=== PATIENT | male | born 1950 | race African-American/Black ===

== ENCOUNTER 2020-06-03 11:31 | Inpatient (IN) | payer OTHER, MEDICARE ==
[~2020-06-03] VITALS: Ht 170.2 cm; Wt 73.5 kg
[~2020-06-03 11:31] MED LIST: CRESTOR40 MG ORAL; INTELENCE100 MG ORAL; ISENTRESS25 MG ORAL; LOSARTAN POTASS50 MG ORAL; LUNESTA3 MG ORAL; MELOXICAM15 MG PO; NEURONTIN600 MG ORAL; PROTONIX40 MG ORAL
[2020-06-03 11:33] VITALS: BP 119/70
--- NOTE | 2020-06-03 11:40 | NUR ---
ED Nurse Note: patient brought into ED referred by Dr. Machado due to rectal bleeding x 1 week. patient reports it is bright red blood. patient denies any abdominal pain or nausea or vomiting. patient was scheduled to get colonoscopy, but had to come to ED because of frequent, consistant bleeding. patient is alert awake x4 ambulatory steady gait, however reports feeling weak. patient provided with hospital gown. patient brething unlabored and even, speaking in full sentences.
--- NOTE | 2020-06-03 11:56 | Emergency Room Report ---
History of Present Illness General Chief Complaint: Gastrointestinal Bleed Source: Patient Present Illness HPI Disclaimer: Please note that this report is being documented using [employer] technology. This can lead to erroneous entry secondary to incorrect interpretation by the dictating instrument. HPI: 69-year-old male history of arthritis, diverticulosis, hemorrhoids presented for lower GI bleed. Patient has had bright red blood per rectum for the past week. Seen by his primary care doctor and had a hemoglobin done on Saturday showing a hemoglobin of 10. His symptoms have continued and he is complaining of some generalized weakness and dizziness so referred to the ER for further evaluation and probable colonoscopy. Patient is followed by GI and last colonoscopy was 5 years ago showing polyps. Patient denies any abdominal pain at this time. 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 COVID-19 Screening: Negative COVID-19 COVID-19 Testing Source: EVENTS DIRECTOR Patient History Reviewed Nursing Documentation: PMH: Agreed; PSxH: Agreed Nursing Documentation-PMH Past Medical History: No History, Except For Hx Cardiac Problems: Yes - HIV+, diverticulitis Hx Hypertension: Yes Hx Asthma: Yes Hx Cancer: Yes Hx Gastrointestinal Problems: Yes - workman's esophagus Hx Neurological Problems: Yes Hx Peripheral Neuropathy: Yes Review of Systems All Other Systems: negative except mentioned in HPI Physical Exam Vital Signs Date Time Temp Pulse Resp B/P (MAP) Pulse Ox O2 Delivery O2 Flow Rate FiO2 06/03/20 11:33 97.9 88 17 119/70 (86) 98 Room Air Sp02 EP Interpretation: reviewed, normal General Appearance: well appearing, no apparent distress Head: normocephalic, atraumatic Eyes: bilateral eye PERRL, bilateral eye EOMI ENT: hearing grossly normal, moist mucus membranes Neck: full range of motion, supple Respiratory: lungs clear, normal breath sounds, no rhonchi, no respiratory distress, no retraction, no wheezing Cardiovascular #1: normal peripheral pulses, regular rate, rhythm, no murmur Gastrointestinal: non tender, soft, non-distended, no guarding Neurologic: alert, oriented x3, no focal defects Skin: normal color, warm/dry Procedures Critical Care Time Critical Care Time Critical care is made on the patient due to presentation for GI bleeding requiring my acute intervention for blood transfusion. Critical care is 33 minutes and excludes procedures Medical Decision Making Diagnostic Impression: Primary Impression: Gastrointestinal hemorrhage ER Course MDM: Patient presents from home with rectal bleeding. Differential diagnosis included but not limited to diverticular bleeding, hemorrhoidal bleeding, upper GI bleed to name a few. Clinical course-IV fluids started basic laboratory studies were sent. Patient had coronavirus testing earlier today which was negative. Hemoglobin returned 7.6. I spoke with GI who plans to take patient for colonoscopy in the morning after a bowel prep. Due to low hemoglobin with ongoing bleeding will order blood transfusion. Patient updated at bedside. Labs - Laboratory Tests Test 06/03/20 12:00 White Blood Count 7.1 K/UL (4.8-10.8) Red Blood Count 2.90 M/UL (4.70-6.10) L Hemoglobin 7.6 G/DL (14.2-18.0) L Hematocrit 24.0 % (42.0-52.0) L Mean Corpuscular Volume 83 FL (80-99) Mean Corpuscular Hemoglobin 26.0 PG (27.0-31.0) L Mean Corpuscular Hemoglobin Concent 31.5 G/DL (32.0-36.0) L Red Cell Distribution Width 14.7 % (11.6-14.8) Platelet Count 187 K/UL (150-450) Mean Platelet Volume 6.5 FL (6.5-10.1) Neutrophils (%) (Auto) % (45.0-75.0) Lymphocytes (%) (Auto) % (20.0-45.0) Monocytes (%) (Auto) % (1.0-10.0) Eosinophils (%) (Auto) % (0.0-3.0) Basophils (%) (Auto) % (0.0-2.0) Differential Total Cells Counted 100 Neutrophils % (Manual) 81 % (45-75) H Lymphocytes % (Manual) 14 % (20-45) L Monocytes % (Manual) 4 % (1-10) Eosinophils % (Manual) 0 % (0-3) Basophils % (Manual) 1 % (0-2) Band Neutrophils 0 % (0-8) Platelet Estimate Adequate Platelet Morphology Normal Hypochromasia 1+ Anisocytosis 1+ Prothrombin Time 10.3 SEC (9.30-11.50) Prothrombin Time INR 0.9 (0.9-1.1) Activated Partial Thromboplast Time 23 SEC (23-33) Sodium Level 138 MMOL/L (136-145) Potassium Level 4.1 MMOL/L (3.5-5.1) Chloride Level 105 MMOL/L (98-107) Carbon Dioxide Level 25 MMOL/L (21-32) Anion Gap 8 mmol/L (5-15) Blood Urea Nitrogen 29 mg/dL (7-18) H Creatinine 1.1 MG/DL (0.55-1.30) Estimated Glomerular Filtration Rate > 60 mL/min (>60) Glucose Level 110 MG/DL (74-106) H Calcium Level 8.5 MG/DL (8.5-10.1) Total Bilirubin 0.3 MG/DL (0.2-1.0) Aspartate Amino Transferase (AST) 30 U/L (15-37) Alanine Aminotransferase (ALT) 31 U/L (12-78) Alkaline Phosphatase 53 U/L (46-116) Total Protein 7.1 G/DL (6.4-8.2) Albumin 3.8 G/DL (3.4-5.0) Globulin 3.3 g/dL Albumin/Globulin Ratio 1.2 (1.0-2.7) Last Vital Signs Date Time Temp Pulse Resp B/P (MAP) Pulse Ox O2 Delivery O2 Flow Rate FiO2 06/03/20 11:33 97.9 88 17 119/70 (86) 98 Room Air Status: unchanged Disposition: ADMITTED INPATIENT Condition: Serious Pipe Kebede M.D. Jun 03, 2020 11:56
[2020-06-03 12:38] LABS: HEMOGLOBIN 7.6 G/DL (14.2-18.0); MEAN CORPUSCULAR VOLUME 83 FL (80-99); PLATELET COUNT 187 K/UL (150-450); RED CELL DISTRIBUTION WIDTH 14.7 % (11.6-14.8); WHITE BLOOD COUNT 7.1 K/UL (4.8-10.8)
[2020-06-03 12:43] LABS: ANION GAP 8 mmol/L (5-15); BLOOD UREA NITROGEN 29 mg/dL (7-18); CALCIUM 8.5 MG/DL (8.5-10.1); CARBON DIOXIDE 25 MMOL/L (21-32); CHLORIDE 105 MMOL/L (98-107); CREATININE 1.1 MG/DL (0.55-1.30); INR 0.9 (0.9-1.1); POTASSIUM 4.1 MMOL/L (3.5-5.1); SODIUM 138 MMOL/L (136-145)
[2020-06-03 12:47] LABS: ALANINE AMINOTRANSFERASE 31 U/L (12-78); ALBUMIN 3.8 G/DL (3.4-5.0); ALBUMIN/GLOBULIN RATIO 1.2 (1.0-2.7); ALKALINE PHOSPHATASE 53 U/L (46-116); ASPARTATE AMINO TRANSFERASE 30 U/L (15-37); BILIRUBIN,TOTAL 0.3 MG/DL (0.2-1.0)
--- NOTE | 2020-06-03 13:14 | NUR ---
ED Nurse Note: at bedside.
--- NOTE | 2020-06-03 13:22 | General Progress Note ---
Assessment/Plan Assessment/Plan: GIB h/o diverticulosis transfuse plan EGD and colonoscopy Subjective ROS Limited/Unobtainable: Yes Allergies: Coded Allergies: No Known Allergies (Unverified , 06/03/20) Objective Last 24 Hour Vital Signs Date Time Temp Pulse Resp B/P (MAP) Pulse Ox O2 Delivery O2 Flow Rate FiO2 06/03/20 12:14 88 17 Room Air 06/03/20 11:33 97.9 88 17 119/70 98 Room Air 06/03/20 11:33 97.9 88 17 119/70 (86) 98 Room Air Laboratory Tests 06/03/20 12:00: White Blood Count 7.1, Red Blood Count 2.90L, Hemoglobin 7.6L, Hematocrit 24.0L , Mean Corpuscular Volume 83, Mean Corpuscular Hemoglobin 26.0L, Mean Corpuscular Hemoglobin Concent 31.5L, Red Cell Distribution Width 14.7, Platelet Count 187, Mean Platelet Volume 6.5, Neutrophils (%) (Auto) , Lymphocytes (%) (Auto) , Monocytes (%) (Auto) , Eosinophils (%) (Auto) , Basophils (%) (Auto) , Differential Total Cells Counted 100, Neutrophils % ( Manual) 81H, Lymphocytes % (Manual) 14L, Monocytes % (Manual) 4, Eosinophils % ( Manual) 0, Basophils % (Manual) 1, Band Neutrophils 0, Platelet Estimate Adequate, Platelet Morphology Normal, Hypochromasia 1+, Anisocytosis 1+, Prothrombin Time 10.3, Prothromb Time International Ratio 0.9, Activated Partial Thromboplast Time 23, Sodium Level 138, Potassium Level 4.1, Chloride Level 105, Carbon Dioxide Level 25, Anion Gap 8, Blood Urea Nitrogen 29H, Creatinine 1.1, Estimat Glomerular Filtration Rate > 60, Glucose Level 110H, Calcium Level 8.5, Total Bilirubin 0.3, Aspartate Amino Transf (AST/SGOT) 30, Alanine Aminotransferase (ALT/SGPT) 31, Alkaline Phosphatase 53, Total Protein 7.1, Albumin 3.8, Globulin 3.3, Albumin/Globulin Ratio 1.2 Height (Feet): 5 Height (Inches): 10.00 Weight (Pounds): 160 EENT: normal ENT inspection Neck: supple Cardiovascular: normal rate Respiratory/Chest: lungs clear Abdomen: normal bowel sounds, non tender, soft Extremities: non-tender Ming Machado MD Jun 03, 2020 13:22
--- NOTE | 2020-06-03 13:33 | NUR ---
ED Nurse Note: clear liquid diet provided to the patient.
--- NOTE | 2020-06-03 14:07 | NUR ---
ED Nurse Note: report given to Shahida HUSTON, endorsed all plan of care to Shahida HUSTON. patient is alert awake x4 vitals stable condition.
--- NOTE | 2020-06-03 14:16 | NUR ---
ED Nurse Note: spoke with Shahida HUSTON that unable to transfuse ordered blood in ED at this time because blood bank needs to get blood [facility]. Shahida HUSTON acknowledged.
--- NOTE | 2020-06-03 14:25 | NUR ---
ED Nurse Note: patient transferred to 3E with all of his belongings, endorsed to Sendy HUSTON.
--- NOTE | 2020-06-03 14:38 | NUR ---
NURSE NOTES: Patient arrived on unit. AOx4, Stable. Breathing is even and unlabored. Patient oriented to room, call light, and unit. Patient instructed to use call light for assistance, verbalized understanding. Patient's skin is c/d/i. Patient is able to ambulate independently. All safety measures provided. All needs met at this time. WIll continue to monitor.
[2020-06-03] MEDS ORDERED: FLONASE ALLERG9.9 ML NS (15:31)
[2020-06-03] MEDS ORDERED: ASPIRIN81 M3 PO (15:31)
[2020-06-03 16:00] VITALS: BP 127/68
[2020-06-03] MEDS ORDERED: Nulytely 4L ORAL SCH (16:00)
[2020-06-03] MEDS: D5 1/2NS w/KCl 20mEq 1,000 ML IV SCH (16:20)
--- NOTE | 2020-06-03 16:40 | NUR ---
INSTALLMENT ACCOUNT CHECKER NOTE SW met w/ pt to assess transition social worker concern. Pt presents as A&O4x. Pt resides w/ his mother at [address] [place] [address]. PT is single, never and has no children. Pt is ambulatory w/o DMEs and independent w/ ADLs and IADLs. Emergency contact is Destiny Snyder (mother) [phone]. PT does not have any transition social worker concern/needs at this time. Pt provided another mailing address: [address] [place] [address].
[2020-06-03] MEDS ORDERED: [UNRECOGNIZED DRUG - OTHER] ORAL SCH (17:30)
[2020-06-03] MEDS ORDERED: LUNESTA 3 MG ORAL PRN (17:30)
--- NOTE | 2020-06-03 18:27 | NUR ---
NURSE NOTES: Blood transfusion started. VSS, BP: 128/65, HR: 94, T: 98.6. Patient is stable. Blood verified by 2 RN. RN will closely monitor patient for any signs of reaction.
--- NOTE | 2020-06-03 18:43 | NUR ---
NURSE NOTES: 1 Unit PRBC transfusing as ordered. No s/s transfusion reaction noted. VSS. BP: 119/64, P: 96, T: 98.5. Breathing is even and unlabored. No chills, no chest pain. Patient is tolerating transfusion well. Patient is almost finished with first bottle of Suprep bowel prep. Patient had 3 bowel movements.
--- NOTE | 2020-06-03 18:59 | NUR ---
NURSE NOTES: Patient had large bloody bowel movement. Dr. Snow made aware. New orders noted and entered. Patient is stable.
--- NOTE | 2020-06-03 19:19 | NUR ---
HAND-OFF: Report given to Rayna HUSTON. Patient is stable. Plan of care endorsed.
[2020-06-03 20:00] VITALS: BP 115/69
--- NOTE | 2020-06-03 20:26 | NUR ---
nurse's notes: received patient awake, alert and oriented, admits to some abdominal discomfort but no substantial pain; first unit of PRBCs completed; no s/s of adverse reaction; cbc to be drawn post transfusion; lab made aware; plan of care discussed with patient who verbalized agreement and understanding.
[2020-06-03] MEDS: Albuterol Sulfate Syrup 2mg/5ml ORAL SCH ×2 (20:42→20:48)
[2020-06-03] MEDS ORDERED: ESZOPICLONE 3 MG ORAL PRN (20:45)
[2020-06-03] MEDS ORDERED: ISENTRESS 400 MG ORAL SCH (21:00)
[2020-06-03] MEDS ORDERED: ROSUVASTATIN 20 MG ORAL SCH (21:00)
[2020-06-03] MEDS ORDERED: INTELENCE 200 MG ORAL SCH (21:00)
[2020-06-03 21:03] LABS: HEMATOCRIT 24.5 % (42.0-52.0); HEMOGLOBIN 7.8 G/DL (14.2-18.0); MEAN CORPUSCULAR VOLUME 83 FL (80-99); PLATELET COUNT 169 K/UL (150-450); RED BLOOD COUNT 2.97 M/UL (4.70-6.10); RED CELL DISTRIBUTION WIDTH 15.3 % (11.6-14.8); WHITE BLOOD COUNT 6.6 K/UL (4.8-10.8)
[2020-06-03 21:07] LABS: BASOPHILS % (AUTO) 0.8 % (0.0-2.0); EOSINOPHILS % (AUTO) 0.1 % (0.0-3.0); MONOCYTES % (AUTO) 6.3 % (1.0-10.0); NEUTROPHILS % (AUTO) 76.8 % (45.0-75.0)
--- NOTE | 2020-06-03 23:00 | NUR ---
NURSE NOTES: Receive a call from [facility] for requesting to send face sheet for arrangement of transfer by Dr. Snow's order and faxed it. Pt is waiting for transfer to ICU meanwhile.
--- NOTE | 2020-06-03 23:06 | History and Physical ---
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 The patient was referred to us by his primary care physician, Dr. Maurisio Kiser. The patient was in his usual state of health until roughly the past week when he started to notice hematochezia described as bright red blood per rectum. The patient was being evaluated by his PCP as an outpatient and on Saturday prior to presentation to ED, hemoglobin was roughly 10. He was being planned for further outpatient evaluation. However, he continued to have more episodes of hematochezia now associated with generalized weakness and lightheadedness and fatigue. The patient denied any associated abdominal pain, nausea, vomiting with this. He also did not have any worsening of his baseline asthma which is well controlled on home inhalers. He does have chronic back, lower extremity pain from known arthritis and has been taking Meloxicam daily up until roughly Saturday as well. He has no other bleeding or bruising. He does not have any skin changes or rashes. He did have chills without objective measured fever during this time. There is no cough. He has a headache without any other associated neurologic symptoms. This prompted the patient to be referred to the ED for further evaluation. Per patient and confirmed by PCP Dr. Kiser, the patient has had multiple colonoscopies prior, last one done 5 years prior showing extensive diverticulosis, internal hemorrhoids, as well as polyps. In the ED, the patient was afebrile and hemodynamically stable. A CBC showed a hemoglobin drop to 7.4. Gastroenterology Dr. Machado was contacted who recommended bowel prep with plan for EGD and colonoscopy on 06/04/2020 AM. In light of active bleeding, the patient was ordered for 1 unit PRBC transfusion in the ED. INR and PTT were unremarkable as well as Platelet. No evidence of hemolysis based on bilirubin. He was then admitted for further management. Clinical update since admission: The patient at roughly around 7 pm shift change, was noted to have recurrent episode of large red bloody bowel movement. A repeat CBC was done post- transfusion which did not show an appropriate rise in hemoglobin. In light of active ongoing bleed, additional units were ordered and pending. The patient also described chills, which he reported preceded blood transfusion, and was ordered for cultures and broad spectrum antibiotics. He was able to complete half of his bowel prep, but was uncomfortable with proceeding with second given concern for worsening hypovolemia. 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 Allergies: Coded Allergies: No Known Allergies (Unverified , 06/03/20) COVID-19 Screening Contact w/high risk pt: No Recent Travel to affected area: No Experienced COVID-19 symptoms?: No Medication History Scheduled Aspirin (Aspirin), 81 MG PO DAILY, (Reported) Etravirine* (Intelence*), 100 MG ORAL EVERY 12 HOURS, (Reported) Fluticasone Propionate (Flonase Allergy Relief), 9.9 ML NS HS, (Reported) Fluticasone Propionate (Flovent Hfa), Unknown Dose INH BID, (Reported) Gabapentin* (Neurontin*), 600 MG ORAL DAILY, (Reported) Meloxicam* (Meloxicam*), 15 MG PO DAILY, (Reported) Montelukast Sodium* (Singulair*), 10 MG ORAL DAILY, (Reported) Pantoprazole* (Protonix*), 40 MG ORAL DAILY, (Reported) Raltegravir (Isentress), 400 MG ORAL EVERY 12 HOURS, (Reported) Rosuvastatin Calcium* (Crestor*), 40 MG ORAL DAILY, (Reported) Testosterone Cypionate (Depo-Testosterone), 1 MG IM NEEDED, (Reported) Scheduled PRN Eszopiclone (Lunesta), 3 MG ORAL BEDTIME PRN for Insomnia, (Reported) Eszopiclone (Lunesta), 3 MG ORAL BEDTIME PRN, (Reported) Miscellaneous Medications Irbesartan (Irbesartan), 150 MG PO, (Reported) Umeclidinium Brm/Vilanterol Tr (Anoro Ellipta 62.5-25 Mcg INH), (Reported) Discontinued Medications Losartan Potassium* (Losartan Potassium*), 50 MG ORAL DAILY, (Reported) Discontinued Reason: Prescription changed Raltegravir Potassium (Isentress), 50 MG ORAL TWICE A DAY, (Reported) Discontinued Reason: Prescription changed Patient History History Provided By: Patient, Medical Record, Caregiver Healthcare decision maker Resuscitation status FULL CODE Advanced Directive on File Past Medical/Surgical History Past Medical/Surgical History: (1) Gastrointestinal hemorrhage (2) HIV (human immunodeficiency virus infection) (3) Hypertension (4) CAD (coronary artery disease) (5) Diverticulosis (6) Internal hemorrhoid (7) Osteoarthritis (8) Hip joint replacement status (9) GERD (gastroesophageal reflux disease) (10) Asthma (11) Testosterone deficiency in male (12) Lives in single-family home Family History Family History: Patient reports no known family medical history. Social History Social History: (1) Lives in single-family home Review of Systems Constitutional: Reports: chills, malaise Eye: Denies: acuity changes ENT: Denies: ear discharge, throat pain, nasal discharge Respiratory: Denies: cough, orthopnea, shortness of breath Cardiovascular: Denies: chest pain, edema, syncope Gastrointestinal: Reports: other - hematochezia; Denies: abdominal pain, hematemesis Genitourinary: Denies: discharge, dysuria Musculoskeletal: Reports: back pain, joint pain Skin: Denies: rash Psychiatric: Reports: prior hx Neurological: Reports: headache, dizziness; Denies: focal weakness Endocrine: Denies: intolerance to temperature Hematologic/Lymphatic: Reports: anemia; Denies: easy bruising All Other Systems: negative except mentioned in HPI Physical Exam General Appearance: alert, lethargic, mild distress Lines, tubes and drains: peripheral HEENT: normocephalic, atraumatic, other - dry mucus membranes Neck: non-tender, normal alignment, supple, normal inspection Respiratory/Chest: lungs clear, normal breath sounds, no respiratory distress Cardiovascular/Chest: normal peripheral pulses, normal rate, regular rhythm Abdomen: non tender, soft, hypoactive bowel sounds Genitourinary/Rectal: other - witnessed hematochezia Extremities: normal range of motion, no edema Skin Exam: normal pigmentation, warm/dry Neurologic: no motor/sensory deficits, alert, oriented x 3 Last 24 Hour Vital Signs Date Time Temp Pulse Resp B/P (MAP) Pulse Ox O2 Delivery O2 Flow Rate FiO2 06/03/20 20:00 98.6 88 20 115/69 (84) 100 89 06/03/20 16:00 98.3 88 20 127/68 (87) 100 06/03/20 14:37 Room Air 7/24/20 14:25 97.9 17 119/70 98 Room Air 06/03/20 12:14 88 17 Room Air 06/03/20 11:33 97.9 88 17 119/70 98 Room Air 06/03/20 11:33 97.9 88 17 119/70 (86) 98 Room Air Laboratory Tests Test 06/03/20 12:00 06/03/20 20:35 White Blood Count 7.1 K/UL (4.8-10.8) 6.6 K/UL (4.8-10.8) Red Blood Count 2.90 M/UL (4.70-6.10) L 2.97 M/UL (4.70-6.10) L Hemoglobin 7.6 G/DL (14.2-18.0) L 7.8 G/DL (14.2-18.0) L Hematocrit 24.0 % (42.0-52.0) L 24.5 % (42.0-52.0) L Mean Corpuscular Volume 83 FL (80-99) 83 FL (80-99) Mean Corpuscular Hemoglobin 26.0 PG (27.0-31.0) L 26.2 PG (27.0-31.0) L Mean Corpuscular Hemoglobin Concent 31.5 G/DL (32.0-36.0) L 31.7 G/DL (32.0-36.0) L Red Cell Distribution Width 14.7 % (11.6-14.8) 15.3 % (11.6-14.8) H Platelet Count 187 K/UL (150-450) 169 K/UL (150-450) Mean Platelet Volume 6.5 FL (6.5-10.1) 6.6 FL (6.5-10.1) Neutrophils (%) (Auto) % (45.0-75.0) 76.8 % (45.0-75.0) H Lymphocytes (%) (Auto) % (20.0-45.0) 16.0 % (20.0-45.0) L Monocytes (%) (Auto) % (1.0-10.0) 6.3 % (1.0-10.0) Eosinophils (%) (Auto) % (0.0-3.0) 0.1 % (0.0-3.0) Basophils (%) (Auto) % (0.0-2.0) 0.8 % (0.0-2.0) Differential Total Cells Counted 100 Neutrophils % (Manual) 81 % (45-75) H Lymphocytes % (Manual) 14 % (20-45) L Monocytes % (Manual) 4 % (1-10) Eosinophils % (Manual) 0 % (0-3) Basophils % (Manual) 1 % (0-2) Band Neutrophils 0 % (0-8) Platelet Estimate Adequate Platelet Morphology Normal Hypochromasia 1+ Anisocytosis 1+ Prothrombin Time 10.3 SEC (9.30-11.50) Prothromb Time International Ratio 0.9 (0.9-1.1) Activated Partial Thromboplast Time 23 SEC (23-33) Sodium Level 138 MMOL/L (136-145) Potassium Level 4.1 MMOL/L (3.5-5.1) Chloride Level 105 MMOL/L (98-107) Carbon Dioxide Level 25 MMOL/L (21-32) Anion Gap 8 mmol/L (5-15) Blood Urea Nitrogen 29 mg/dL (7-18) H Creatinine 1.1 MG/DL (0.55-1.30) Estimat Glomerular Filtration Rate > 60 mL/min (>60) Glucose Level 110 MG/DL (74-106) H Calcium Level 8.5 MG/DL (8.5-10.1) Total Bilirubin 0.3 MG/DL (0.2-1.0) Aspartate Amino Transf (AST/SGOT) 30 U/L (15-37) Alanine Aminotransferase (ALT/SGPT) 31 U/L (12-78) Alkaline Phosphatase 53 U/L (46-116) Total Protein 7.1 G/DL (6.4-8.2) Albumin 3.8 G/DL (3.4-5.0) Globulin 3.3 g/dL Albumin/Globulin Ratio 1.2 (1.0-2.7) Height (Feet): 5 Height (Inches): 10.00 Weight (Pounds): 160 Medications Current Medications Medications (Trade) Dose Ordered Sig/Yonatan Route PRN Reason Start Time Stop Time Status Last Admin Dose Admin Acetaminophen (Tylenol) 650 mg Q4H PRN ORAL Mild Pain (Pain Scale 1-3) 06/03/20 17:00 07/03/20 16:59 Dextrose (Dextrose 50%) 25 ml Q30M PRN IV Hypoglycemia 06/03/20 17:00 09/01/20 16:59 Dextrose (Dextrose 50%) 50 ml Q30M PRN IV Hypoglycemia 06/03/20 17:00 09/01/20 16:59 Dextrose/ Electrolytes 1,000 ml @ 75 mls/hr [id number] IV 06/03/20 16:00 07/03/20 15:59 06/03/20 16:20 Gabapentin (Neurontin) 600 mg QHS ORAL 06/03/20 21:00 07/03/20 20:59 06/03/20 20:42 Mirtazapine (Remeron) 15 mg BEDTIME ORAL 06/03/20 22:00 09/02/20 20:59 Montelukast Sodium (Singulair) 10 mg QPM ORAL 06/04/20 16:30 09/02/20 16:29 Patient Own Medication (Patient's Own Inhaler) 1 puff DAILY INH 06/04/20 09:00 07/04/20 08:59 Patient Own Medication (Patient's Own Med) 1 ea BID ORAL 06/03/20 21:00 07/03/20 20:59 06/03/20 20:42 Patient Own Medication (Patient's Own Med) 1 ea BID ORAL 06/03/20 21:00 07/03/20 20:59 06/03/20 20:42 Patient Own Medication (Patient's Own Med) 1 ea DAILY ORAL 06/04/20 09:00 07/04/20 08:59 Patient Own Medication (Patient's Own Med) 1 ea DAILY ORAL 06/04/20 09:00 07/04/20 08:59 Patient Own Medication (Patient's Own Med) 1 ea ONCE ORAL 06/03/20 17:30 06/04/20 10:00 06/03/20 17:51 Patient Own Medication (Patient's Own Med) 1 ea QHS ORAL 06/03/20 21:00 07/03/20 20:59 06/03/20 20:42 Patient Own Medication (Patient's Own Med) 1 ea QHS PRN ORAL insomnia 06/03/20 20:45 07/03/20 17:29 06/03/20 21:50 Piperacillin Sod/ Tazobactam Sod 3.375 gm/Sodium Chloride 110 ml @ 27.5 mls/hr Q8H IVPB 06/04/20 00:00 06/11/20 00:00 Sodium Chloride 1,000 ml @ 999 mls/hr Q1H1M ONCE IV 06/03/20 22:45 06/03/20 23:45 UNV Vancomycin HCl (Vanco pharmacy to dose) 1 ea DAILY MISC 06/03/20 22:15 07/03/20 22:14 UNV Assessment/Plan Problem List: (1) Gastrointestinal hemorrhage ICD Codes: K92.2 - Gastrointestinal hemorrhage, unspecified SNOMED: 06300381 (2) Testosterone deficiency in male ICD Codes: E29.1 - Testicular hypofunction SNOMED: 123457112, 2954022254700 (3) Internal hemorrhoid ICD Codes: K64.8 - Other hemorrhoids SNOMED: 79122528 (4) HIV (human immunodeficiency virus infection) ICD Codes: B20 - Human immunodeficiency virus [HIV] disease SNOMED: 74649536 (5) Asthma ICD Codes: J45.909 - Unspecified asthma, uncomplicated SNOMED: 901821944 (6) Hypertension ICD Codes: I10 - Essential (primary) hypertension SNOMED: 62491159 (7) GERD (gastroesophageal reflux disease) ICD Codes: K21.9 - Gastro-esophageal reflux disease without esophagitis SNOMED: 746698248 (8) Osteoarthritis ICD Codes: M19.90 - Unspecified osteoarthritis, unspecified site SNOMED: 074807051 (9) Diverticulosis ICD Codes: K57.90 - Diverticulosis of intestine, part unspecified, without perforation or abscess without bleeding SNOMED: 277217410 (10) CAD (coronary artery disease) ICD Codes: I25.10 - Atherosclerotic heart disease of [place] coronary artery without angina pectoris SNOMED: 86154286 (11) Hip joint replacement status ICD Codes: Z96.649 - Presence of unspecified artificial hip joint SNOMED: 54296367, 451483521, 269610512, 672284702 Status: deteriorating Assessment/Plan: This is a 69 year old gentleman with a history of well controlled HIV, hypertension, known diverticulosis, internal hemorrhoids, using daily Meloxicam for chronic arthritis, GERD, well controlled asthma who is presenting with 1 week hematochezia #Acute blood loss anemia #Gastrointestinal hemorrhage, presumed lower source #Diverticulosis #Internal hemorrhoids #Colonic polyps discovered on colonoscopy 5 years ago - differential includes diverticular bleedding, AVM, hemorrhoidal bleeding, polyp bleeding, or other lower GI source. less likely to be upper GI source as a brisk upper bleed ongoing for over 1 week would likely present in a much more critical state - patient s/p 1 unit RBC on 06/03/20. post-transfusion CBC did not show an appropriate rise in hemoglobin and in light of active witnessed hematochezia, will transfuse 2 additional units. Unfortunately additional blood products not available in-house, must request from [facility] which could cause delay in care - monitor patient closely in ICU given active bleed, hemoglobin not responding to transfusion, delay in obtaining blood products - while awaiting blood, NS bolus for volume resuscitation - trend CBC and lactate - GI consulted, appreciate recommendations. Bowel prep 06/03/2020 evening attempted and completed half although patient is adamant that he not proceed with second out of his concern for worsening hypovolemia. Plan for EGD/ colonoscopy tentatively 06/04/2020 - discussed with nursing to attempt to maintain 2 large bore peripheral IV minimum at all times - no evidence of coagulopathy or hemolysis on labs - hold all NSAIDs - hold chemical DVT prophylaxis #Chills #Generalized malaise: unclear etiology. could be related to a minor transfusion reaction, but patient reports symptoms preceding blood. could also be related to blood loss as above - cover broadly with Vancomycin/Zosyn (06/03 - ) and send blood culture, UA, chest x-ray - check MRSA nares. if cultures negative, can likely de-escalate but in light of tenuous clinical scenario will cover with antibiotics at this time #Asthma: well controlled. Followed by Dr. Camron Alvarez as an outpatient - continue home Trelegy, albuterol, singulair #HIV: well controlled. has prior history of AIDS and MAC per PCP - continue home Isentress/Intelence #GERD - continue home protonix #HTN - continue home ARB #Insomnia - continue home Lunesta prn - continue home Remeron #Neuropathy - continue home gabapentin 600 mg QHS #Chronic arthritis: of back, legs, feet - hold home meloxicam in light of bleed - tylenol PRN for now and consider topicals/opioids if pain uncontrolled #Coronary artery disease: seen on Calcium CT scan, asymptomatic without angina - continue home crestor - hold aspirin in light of active bleeding #Testosterone deficiency - on home testosterone weekly injections #Pre-operative evaluation for EGD and Colonoscopy. Based on ACC/AHA guidelines, this patient is of low risk for these low risk procedures. While he does have history of CAD, asthma, HIV, he was totally independent without any anginal symptoms and had no limitations in functioning and prior to onset of GI bleeding, was able to achieve METS > 4 without issue. Therefore, the patient is of acceptably low risk to proceed with these urgent procedures without additional cardiac workup - Recommendations: will continue to volume resuscitate patient prior to procedure and cover broadly with antibiotics. Will obtain pre-operative EKG. Holding all anticoagulation and NSAIDs at this time #FEN/GI - NPO for EGD/colonoscopy - hold DVT ppx for active GI bleed - maintain 2+ large bore peripheral IV if possible #Dispo: The patient is being transferred to the ICU. He requires at minimum 2 midnights. ICU care is warranted because of need for close monitoring. I am concerned because he did not respond to RBC transfusion, and given supply shortage, there is a delay in additional RBC transfusion. In light of active bleed, I am concerned he may develop hemorrhagic shock and he requires very close monitoring and frequent labs. I spent 80 minutes in the care of this patient. Over 40 minutes was involving direct face to face patient care as well as counseling/discussion of care with the patient. I also coordinated care with his primary care provider Dr. Kiser as well as Dish Technician Dr. Machado as well as nursing staff. Carlos Snow M.D. Jun 03, 2020 23:06
--- NOTE | 2020-06-03 23:17 | Diagnostic Imaging Report ---
EXAM: XR Chest, 1 View CLINICAL HISTORY: INFECT TECHNIQUE: Frontal view of the chest. COMPARISON: 09/01/2007 FINDINGS: Lungs: Low lung volumes with bronchovascular crowding. No consolidation, pleural effusion, or pneumothorax. Pleural space: See above. Heart: Unremarkable. No cardiomegaly. Mediastinum: Unremarkable. Bones/joints: No acute abnormality IMPRESSION: 1. Low lung volumes with bronchovascular crowding. 2. Otherwise no acute cardiopulmonary disease. 3. If there is continued concern, recommend frontal and lateral chest radiographs or CT.
[2020-06-03] MEDS ORDERED: INTELENCE100 MG ORAL (23:21)
[2020-06-03] MEDS ORDERED: ISENTRESS400 MG ORAL (23:21)
[2020-06-03] MEDS ORDERED: IRBESARTAN150 MG PO (23:21)
[2020-06-03] MEDS ORDERED: SINGULAIR10 MG ORAL (23:21)
[2020-06-03] MEDS ORDERED: LUNESTA3 MG ORAL (23:22)
[2020-06-03] MEDS ORDERED: DEPO-TESTOSTER100 MG IM (23:24)
[2020-06-03] MEDS ORDERED: ANORO ELLIPTA1 EACH (23:27)
[2020-06-03] MEDS ORDERED: FLOVENT2 PUFF1 INH (23:27)
[2020-06-04] VITALS (31 sets, daily range): BP systolic 97–135; BP diastolic 52–96
[2020-06-04] MEDS ORDERED: Piperacillin/Tazobactam 3.375 GM in NS 110 ML IVPB SCH ×2
--- NOTE | 2020-06-04 00:02 | NUR ---
NURSE'S NOTES: SPOKE WITH BOTH DR. WILLOUGHBY AND DR. ARANDA INFORMING THEM OF PATIENT'S HESITATION TO CONTINUE BOWEL PREP. DR. ARANDA CALLED THE PATIENT PER HIS REQUEST. NEW ORDERS NOTED AND INITIATED. NS BOLUS STARTED. 2ND UNIT OF PRBC ON HOLD UNTIL BOLUS FINISHED. FOR TRANSFER TO ICU; REPORT GIVEN TO BOTH ROBEL BENITES AND ROBEL BISHOP. 2 WATERY BLOODY BOWEL MOVEMENTS NOTED AND CHARTED. PER DR ARANDA, WILL ARRANGE TRANSFER TO [facility].
--- NOTE | 2020-06-04 00:15 | NUR ---
NURSE NOTES: Received report from Rayna HUSTON. patient transferred from [facility] per Dr. Snow. Patient admitted for lower GI bleed. Patient alert oriented x4 able to verbalize needs to staff. No SOb saturation Room air 98-100%. HOB elevated. Instructed patient to use call light for assistance. urinal and bedside commode provided. BP 122/59 HR 88 resp 14 Temp 98.0 axillary. Denies any pain or discomfort but per patient he is weak. Negative for covid. IV line intact infusing D5 1/2 NS with KCL 20 mEq at 75cc/hr. Bed alarm on. bed locked and in low position. will continue plan of care.
[2020-06-04] MEDS: D5 1/2NS w/KCl 20mEq 1,000 ML IV SCH ×3 (01:02→15:31)
--- NOTE | 2020-06-04 01:15 | NUR ---
NURSE NOTES: Started blood transfusion #2 no adverse reaction noted.
--- NOTE | 2020-06-04 03:00 | NUR ---
NURSE NOTES: Infused blood transfusion #2 no adverse reaction noted.
--- NOTE | 2020-06-04 03:41 | NUR ---
NURSE NOTES: assisted patient to bedside commode noted patient with approximately 500cc dark bloody loose stool with some blood clot. kept patient patient clean and dry and assisted back to bed. denies any pain or discomfort. skin warm and dry to touch. call light within easy reach.will continue plan of care.
[2020-06-04] MEDS: Piperacillin/Tazobactam 3.375 GM in NS 110 ML IVPB SCH ×3 (03:50→19:23)
--- NOTE | 2020-06-04 05:00 | NUR ---
NURSE NOTES: Inserted IV line on Left hand #22, left ac iv line infiltrated.
[2020-06-04 05:04] LABS: APPEARANCE,URINE CLEAR; BILIRUBIN, URINE NEGATIVE (NEGATIVE); COLOR,URINE PALE YELLOW; GLUCOSE, URINE (UA) NEGATIVE (NEGATIVE); KETONES,URINE NEGATIVE (NEGATIVE); LEUKOCYTE ESTERASE ,URINE NEGATIVE (NEGATIVE); NITRITE,URINE NEGATIVE (NEGATIVE); PH,URINE 5 (4.5-8.0); PROTEIN,URINE NEGATIVE (NEGATIVE); UROBILINOGEN,URINE NORMAL MG/DL (0.0-1.0)
[2020-06-04] MEDS ORDERED: Vancomycin 1gm in D5W 275ml IVPB SCH (06:00)
--- NOTE | 2020-06-04 06:00 | NUR ---
NURSE NOTES: assisted patient to bedside commode noted patient with approximately 300cc dark bloody loose stool with some blood clot. kept patient patient clean and dry and assisted back to bed. denies any pain or discomfort. skin warm and dry to touch. call light within easy reach.will continue plan of care.
[2020-06-04] MEDS: Vancomycin 1 GM in D5W 275 ML IVPB SCH ×2 (06:25→18:05)
[2020-06-04 07:03] LABS: HEMATOCRIT 20.3 % (42.0-52.0); HEMOGLOBIN 6.5 G/DL (14.2-18.0); MEAN CORPUSCULAR VOLUME 86 FL (80-99); PLATELET COUNT 133 K/UL (150-450); RED BLOOD COUNT 2.37 M/UL (4.70-6.10); RED CELL DISTRIBUTION WIDTH 14.6 % (11.6-14.8); WHITE BLOOD COUNT 5.8 K/UL (4.8-10.8)
[2020-06-04 07:19] LABS: ALANINE AMINOTRANSFERASE 26 U/L (12-78); ALBUMIN 2.5 G/DL (3.4-5.0); ALKALINE PHOSPHATASE 33 U/L (46-116); ANION GAP 9 mmol/L (5-15); ASPARTATE AMINO TRANSFERASE 25 U/L (15-37); BILIRUBIN,TOTAL 0.4 MG/DL (0.2-1.0); BLOOD UREA NITROGEN 15 mg/dL (7-18); CALCIUM 7.2 MG/DL (8.5-10.1); CARBON DIOXIDE 22 MMOL/L (21-32); CHLORIDE 111 MMOL/L (98-107); CREATININE 0.9 MG/DL (0.55-1.30); POTASSIUM 3.7 MMOL/L (3.5-5.1); SODIUM 142 MMOL/L (136-145)
--- NOTE | 2020-06-04 07:25 | NUR ---
HAND-OFF: Report given to Min RN.
--- NOTE | 2020-06-04 07:25 | NUR ---
NURSE NOTES: Received report from ROBEL Rivas. Pt in bed awake and orientedx4. No c/o pain. IV site in FA 22G running with IV Zosyn and Right hand 20G running with D5 1/2NS w/KCL @75ml/hr patent and asymptomatic. Side railsx2 up for safety. Call light and urinal within easy reach. All belonging reviewed with the patient and previous shift RN. O2 2LPM via N/C and sating 99%. Bed in the lowest position and locked. Dr. Carlos Snow is present at the bedside and explained the EGD/colonoscope to be done today to patient. Will continue plan of care.
[2020-06-04] MEDS ORDERED: NS 500ML IVPB ONE (08:15)
--- NOTE | 2020-06-04 08:18 | Pre-Procedure Note/Attestation ---
Pre-Procedure Note/Attestation Complete Prior to Procedure Planned Procedure: not applicable Procedure Narrative: esophagogastroduodenoscopy and colonoscopy Indications for Procedure Pre-Operative Diagnosis: gib Attestation I attest that I discussed the nature of the procedure; its benefits; risks and complications; and alternatives (and the risks and benefits of such alternatives ), prior to the procedure, with the patient (or the patient's legal liability claims representative). I attest that, if there was a reasonable possibility of needing a blood transfusion, the patient (or the patient's legal liability claims representative) was given the [facility] standardized written summary, pursuant to the [place] Blood Safety Act ([place] Health and Safety Code # 1645, as amended). I attest that I re-evaluated the patient just prior to the surgery and that there has been no change in the patient's H&P, except as documented below: Ming Machado MD Jun 04, 2020 08:18
[2020-06-04] MEDS ORDERED: Lidocaine 1% Plain 30 ml INJ ONE (08:26)
--- NOTE | 2020-06-04 08:35 | NUR ---
NURSE NOTES: Pt went to GI lab for EGD/Colonoscopy with RNs and cardiac monitor technician via mahad with 2LPM via N/C. VSS
[2020-06-04] MEDS ORDERED: Tubing Blood Filter IV ONE (08:46)
[2020-06-04] MEDS ORDERED: NS 275ml ONE ×2 (08:46→08:47)
[2020-06-04] MEDS ORDERED: D5W 275ml ONE (08:47)
[2020-06-04] MEDS ORDERED: Tubing IV Secondary IV ONE (08:47)
[2020-06-04] MEDS ORDERED: LR 1000ml 1,000 ML IVLG SCH (08:48)
[2020-06-04] MEDS ORDERED: DiphenhydrAMINE 50mg/ml Inj IVP PRN (09:00)
[2020-06-04] MEDS ORDERED: Atropine Sulfate 0.4mg/ml inj IVP PRN (09:00)
[2020-06-04] MEDS: ISENTRESS 400 MG ORAL SCH ×2 (09:00→18:06)
[2020-06-04] MEDS ORDERED: TRELEGY ELLIPTA INH SCH (09:00)
[2020-06-04] MEDS ORDERED: Labetalol 5mg/ml 20ml vial IV PRN (09:00)
[2020-06-04] MEDS ORDERED: Albuterol Sulfate Syrup 2mg/5ml ORAL SCH (09:00)
[2020-06-04] MEDS ORDERED: Ketorolac 30mg Inj IV PRN ×2 (09:00)
[2020-06-04] MEDS ORDERED: HYDROcodone/Acetamin 5/325 tab ORAL PRN (09:00)
[2020-06-04] MEDS ORDERED: oxyCODONE HCL/Acetaminophen 5/325mg ORAL PRN (09:00)
[2020-06-04] MEDS ORDERED: fentaNYL 100 mcg/2 mL IV PRN (09:00)
[2020-06-04] MEDS: Irbesartan 150mg tablet ORAL SCH (09:00)
[2020-06-04] MEDS ORDERED: Midazolam 2mg/2ml Inj IVP PRN (09:00)
[2020-06-04] MEDS ORDERED: Hydromorphone 0.5mg/0.5ml inj IVP PRN (09:00)
[2020-06-04] MEDS ORDERED: LORazepam Inj 2mg/ml 1ml IV PRN (09:00)
[2020-06-04] MEDS ORDERED: Metoclopramide 10mg/2ml Inj IVP PRN (09:00)
[2020-06-04] MEDS ORDERED: HYDROcodone/Acetamin 7.5/325 tab ORAL PRN (09:00)
[2020-06-04] MEDS ORDERED: LANSOPRAZOLE 30 MG ORAL SCH (09:00)
[2020-06-04] MEDS ORDERED: Meperidine 25mg/0.5ml Inj (FOR RIGORS ONLY) IV PRN (09:00)
[2020-06-04] MEDS ORDERED: Irbesartan 150mg tablet ORAL SCH (09:00)
[2020-06-04] MEDS ORDERED: IRBESARTAN 150 MG ORAL SCH (09:00)
[2020-06-04] MEDS: TRELEGY ELLIPTA INH SCH (09:00)
--- NOTE | 2020-06-04 09:00 | NUR ---
NURSE NOTES: Pt off the unit for EGD/Colonoscopy
--- NOTE | 2020-06-04 09:00 | Anethesia Preoperative Eval ---
Anesthesia Pre-op PMH/ROS General Date of Evaluation: Jun 04, 2020 Time of Evaluation: 08:01 Anesthesiologist: Julio ASA Score: ASA 4 - Emergency Mallampati Score Class I : Soft palate, uvula, fauces, pillars visible Class II: Soft palate, uvula, fauces visible Class III: Soft palate, base of uvula visible Class IV: Only hard plate visible Mallampati Classification: Class II Surgeon: Carter Diagnosis: Hematochezia Surgical Procedure: EGD/Colonoscopy Anesthesia History: none Family History: no anesthesia problems Allergies: Coded Allergies: No Known Allergies (Unverified , 06/03/20) Medications: see eMAR Patient NPO?: Yes Past Medical History Cardiovascular: Reports: HTN, other - HL Pulmonary: Reports: asthma Gastrointestinal/Genitourinary: Reports: other - Prostate CA Hematology/Immune: Reports: anemia, other - HIV/AIDS Musculoskeletal/Integumentary: Reports: OA, other - Peripheral Neuropathy PSxH Narrative: B THR Anesthesia Pre-op Phys. Exam Physician Exam Last Vital Signs Date Time Temp Pulse Resp B/P (MAP) Pulse Ox O2 Delivery O2 Flow Rate FiO2 06/04/20 08:00 98.6 79 14 120/58 (78) 100 06/04/20 04:00 Room Air Constitutional: NAD Neurologic: CN 2-12 intact Cardiovascular: RRR Respiratory: CTA Gastrointestinal: S/NT/ND Airway Exam Mallampati Score: Class II MO: full ROM: limited Teeth: missing, intact Anesthesia Pre-op A/P Labs Hematology Test 06/03/20 12:00 06/03/20 20:35 06/04/20 06:50 White Blood Count 7.1 K/UL (4.8-10.8) 6.6 K/UL (4.8-10.8) 5.8 K/UL (4.8-10.8) Red Blood Count 2.90 M/UL (4.70-6.10) L 2.97 M/UL (4.70-6.10) L 2.37 M/UL (4.70-6.10) L Hemoglobin 7.6 G/DL (14.2-18.0) L 7.8 G/DL (14.2-18.0) L 6.5 G/DL (14.2-18.0) *L Hematocrit 24.0 % (42.0-52.0) L 24.5 % (42.0-52.0) L 20.3 % (42.0-52.0) L Mean Corpuscular Volume 83 FL (80-99) 83 FL (80-99) 86 FL (80-99) Mean Corpuscular Hemoglobin 26.0 PG (27.0-31.0) L 26.2 PG (27.0-31.0) L 27.4 PG (27.0-31.0) Mean Corpuscular Hemoglobin Concent 31.5 G/DL (32.0-36.0) L 31.7 G/DL (32.0-36.0) L 32.0 G/DL (32.0-36.0) Red Cell Distribution Width 14.7 % (11.6-14.8) 15.3 % (11.6-14.8) H 14.6 % (11.6-14.8) Platelet Count 187 K/UL (150-450) 169 K/UL (150-450) 133 K/UL (150-450) L Mean Platelet Volume 6.5 FL (6.5-10.1) 6.6 FL (6.5-10.1) 6.6 FL (6.5-10.1) Neutrophils (%) (Auto) % (45.0-75.0) 76.8 % (45.0-75.0) H % (45.0-75.0) Lymphocytes (%) (Auto) % (20.0-45.0) 16.0 % (20.0-45.0) L % (20.0-45.0) Monocytes (%) (Auto) % (1.0-10.0) 6.3 % (1.0-10.0) % (1.0-10.0) Eosinophils (%) (Auto) % (0.0-3.0) 0.1 % (0.0-3.0) % (0.0-3.0) Basophils (%) (Auto) % (0.0-2.0) 0.8 % (0.0-2.0) % (0.0-2.0) Differential Total Cells Counted 100 Neutrophils % (Manual) 81 % (45-75) H Pending Lymphocytes % (Manual) 14 % (20-45) L Pending Monocytes % (Manual) 4 % (1-10) Eosinophils % (Manual) 0 % (0-3) Basophils % (Manual) 1 % (0-2) Band Neutrophils 0 % (0-8) Platelet Estimate Adequate Pending Platelet Morphology Normal Pending Hypochromasia 1+ Anisocytosis 1+ Coagulation Test 06/03/20 12:00 06/04/20 06:50 Prothrombin Time 10.3 SEC (9.30-11.50) 11.3 SEC (9.30-11.50) Prothromb Time International Ratio 0.9 (0.9-1.1) 1.0 (0.9-1.1) Activated Partial Thromboplast Time 23 SEC (23-33) 18 SEC (23-33) L Chemistry Test 06/03/20 12:00 06/04/20 06:50 Sodium Level 138 MMOL/L (136-145) 142 MMOL/L (136-145) Potassium Level 4.1 MMOL/L (3.5-5.1) 3.7 MMOL/L (3.5-5.1) Chloride Level 105 MMOL/L (98-107) 111 MMOL/L (98-107) H Carbon Dioxide Level 25 MMOL/L (21-32) 22 MMOL/L (21-32) Anion Gap 8 mmol/L (5-15) 9 mmol/L (5-15) Blood Urea Nitrogen 29 mg/dL (7-18) H 15 mg/dL (7-18) Creatinine 1.1 MG/DL (0.55-1.30) 0.9 MG/DL (0.55-1.30) Estimat Glomerular Filtration Rate > 60 mL/min (>60) > 60 mL/min (>60) Glucose Level 110 MG/DL (74-106) H 136 MG/DL (74-106) H Calcium Level 8.5 MG/DL (8.5-10.1) 7.2 MG/DL (8.5-10.1) L Total Bilirubin 0.3 MG/DL (0.2-1.0) 0.4 MG/DL (0.2-1.0) Aspartate Amino Transf (AST/SGOT) 30 U/L (15-37) 25 U/L (15-37) Alanine Aminotransferase (ALT/SGPT) 31 U/L (12-78) 26 U/L (12-78) Alkaline Phosphatase 53 U/L (46-116) 33 U/L (46-116) L Total Protein 7.1 G/DL (6.4-8.2) 5.0 G/DL (6.4-8.2) L Albumin 3.8 G/DL (3.4-5.0) 2.5 G/DL (3.4-5.0) L Globulin 3.3 g/dL 2.4 g/dL Albumin/Globulin Ratio 1.2 (1.0-2.7) 1.0 (1.0-2.7) Lactic Acid Level 1.20 mmol/L (0.4-2.0) Magnesium Level 1.5 MG/DL (1.8-2.4) L Risk Assessment & Plan Assessment: ASA 4E Plan: TIVA Status Change Before Surgery: No Gopi Kim MD Jun 04, 2020 09:00
--- NOTE | 2020-06-04 09:01 | Immediate Post-Op Evaluation ---
Immediate Post-Op Evalulation Immediate Post-Op Evalulation Procedure: EGD/Colonoscopy Date of Evaluation: Jun 04, 2020 Time of Evaluation: 09:42 IV Fluids: 500 NS Blood Products: 0 Estimated Blood Loss: 10 Urinary Output: 0 Blood Pressure Systolic: 93 Blood Pressure Diastolic: 51 Pulse Rate: 79 Respiratory Rate: 16 O2 Sat by Pulse Oximetry: 100 Temperature (Fahrenheit): 98.1 Pain Score (1-10): 1 Nausea: No Vomiting: No Complications 0 Patient Status: awake, reacts, patent, none Hydration Status: adequate Gopi Kim MD Jun 04, 2020 09:01
--- NOTE | 2020-06-04 09:02 | 48 Hour Post Anesthesia Eval ---
Post Anesthesia Evaluation Procedure: EGD/Colonoscopy Date of Evaluation: Jun 04, 2020 Time of Evaluation: 11:53 Blood Pressure Systolic: 118 0: 65 Pulse Rate: 79 Respiratory Rate: 18 Temperature (Fahrenheit): 98.2 O2 Sat by Pulse Oximetry: 100 Airway: patent Nausea: No Vomiting: No Pain Intensity: 1 Hydration Status: adequate Cardiopulmonary Status: Stable Mental Status/LOC: patient returned to baseline Follow-up Care/Observations: 0 Post-Anesthesia Complications: 0 Follow-up care needed: N/A Gopi Kim MD Jun 04, 2020 09:02
--- NOTE | 2020-06-04 09:11 | Endoscopy Procedure Note ---
Endoscopy Procedure Note General Indication for Procedure: gib Procedures Performed: EGD, colonoscopy Operative Findings/Diagnosis: diverticulosis Specimen: yes Pt Tolerated Procedure Well: Yes Estimated Blood Loss: none Anesthesia Anesthesiologist: baldo Anesthesia: MAC Inserted Devices Implant(s) used?: No GI Core Measures 50 yrs or older w/o bx or poly: Not Applicable 10yrs. F/U recommended: Not Applicable Ming Machado MD Jun 04, 2020 09:11
--- NOTE | 2020-06-04 09:30 | NUR ---
NURSE NOTES: Pt returned back from GI lab VIA GURNEY. No active bleeding found on EGD and colonoscopy. VSS. Denied pain. Pt slightly sedated but able to open his eyes when his name called.
--- NOTE | 2020-06-04 10:20 | General Progress Note ---
Assessment/Plan Problem List: (1) Gastrointestinal hemorrhage ICD Codes: K92.2 - Gastrointestinal hemorrhage, unspecified SNOMED: 31353760 (2) Testosterone deficiency in male ICD Codes: E29.1 - Testicular hypofunction SNOMED: 452760862, 8058030121838 (3) Internal hemorrhoid ICD Codes: K64.8 - Other hemorrhoids SNOMED: 38985473 (4) HIV (human immunodeficiency virus infection) ICD Codes: B20 - Human immunodeficiency virus [HIV] disease SNOMED: 04234131 (5) Asthma ICD Codes: J45.909 - Unspecified asthma, uncomplicated SNOMED: 903616863 (6) Hypertension ICD Codes: I10 - Essential (primary) hypertension SNOMED: 84978971 (7) GERD (gastroesophageal reflux disease) ICD Codes: K21.9 - Gastro-esophageal reflux disease without esophagitis SNOMED: 061040438 (8) Osteoarthritis ICD Codes: M19.90 - Unspecified osteoarthritis, unspecified site SNOMED: 766759478 (9) Diverticulosis ICD Codes: K57.90 - Diverticulosis of intestine, part unspecified, without perforation or abscess without bleeding SNOMED: 154205448 (10) CAD (coronary artery disease) ICD Codes: I25.10 - Atherosclerotic heart disease of [place] coronary artery without angina pectoris SNOMED: 28558758 (11) Hip joint replacement status ICD Codes: Z96.649 - Presence of unspecified artificial hip joint SNOMED: 45699297, 150034421, 385951981, 406089197 Status: not improved Assessment/Plan: This is a 69 year old gentleman with a history of well controlled HIV, hypertension, known diverticulosis, internal hemorrhoids, using daily Meloxicam for chronic arthritis, GERD, well controlled asthma who is presenting with 1 week hematochezia #Acute blood loss anemia #Gastrointestinal hemorrhage, presumed lower source #Diverticulosis #Internal hemorrhoids #Colonic polyps discovered on colonoscopy 5 years ago - differential includes diverticular bleedding, AVM, hemorrhoidal bleeding, polyp bleeding, or other lower GI source. less likely to be upper GI source as a brisk upper bleed ongoing for over 1 week would likely present in a much more critical state - patient s/p 1 unit RBC on 06/03/20. s/p1 additional 1 unit RBC 06/04/20 early AM - post transfusion CBC shows hemoglobin dropping to 6.5 as of 06/04/20 AM, ordered for 2 additional units RBC - monitor patient closely in ICU given active bleed, hemoglobin not responding to transfusion, delay in obtaining blood products - trend CBC and lactate - GI consulted, appreciate recommendations. Bowel prep 06/03/2020 evening attempted and completed half although patient is adamant that he not proceed with second out of his concern for worsening hypovolemia. Plan for EGD/ colonoscopy tentatively 06/04/2020 AM. Will follow up with results and consider CT Angio Abdomen if continued active bleeding for intervention - discussed with nursing to attempt to maintain 2 large bore peripheral IV minimum at all times - no evidence of coagulopathy or hemolysis on labs - hold all NSAIDs - hold chemical DVT prophylaxis #Chills #Generalized malaise: unclear etiology. could be related to a minor transfusion reaction, but patient reports symptoms preceding blood. could also be related to blood loss as above - continue broadly with Vancomycin/Zosyn (06/03 - ) and follow up blood culture. UA and CXR unrevealing for source of infection - check MRSA nares. if cultures negative, can likely de-escalate but in light of tenuous clinical scenario will cover with antibiotics at this time #Asthma: well controlled. Followed by Dr. Camron Alvarez as an outpatient - continue home Trelegy, albuterol, singulair #HIV: well controlled. has prior history of AIDS and MAC per PCP - continue home Isentress/Intelence #GERD - continue home protonix #HTN - continue home ARB #Insomnia - continue home Lunesta prn - continue home Remeron #Neuropathy - continue home gabapentin 600 mg QHS #Chronic arthritis: of back, legs, feet - hold home meloxicam in light of bleed - tylenol PRN for now and consider topicals/opioids if pain uncontrolled #Coronary artery disease: seen on Calcium CT scan, asymptomatic without angina - continue home crestor - hold aspirin in light of active bleeding #Testosterone deficiency - on home testosterone weekly injections #FEN/GI - NPO for EGD/colonoscopy, will resume diet if safe and feasible afterward - hold DVT ppx for active GI bleed - maintain 2+ large bore peripheral IV if possible #Dispo: The patient is being monitored in the ICU. ICU care is warranted because of need for close monitoring. I am concerned because he did not respond to RBC transfusion, and given supply shortage, there is a delay in additional RBC transfusion. In light of active bleed, I am concerned he may develop hemorrhagic shock and he requires very close monitoring and frequent labs. He will likely be discharged home pending resolution of bleeding, possibly in 2-3 days I spent 40 minutes in the care of this patient. Over 20 minutes was involving direct face to face patient care as well as counseling/discussion of care with the patient. I also coordinated care with his primary care provider Dr. Kiser as well as [employer] Site Manager and nursing staff. Subjective Date patient seen: Jun 04, 2020 Time patient seen: 07:00 Constitutional: Reports: chills, malaise, weakness HEENT: Denies: eye pain, blurred vision Cardiovascular: Denies: chest pain, edema, irregular heart rate Respiratory: Denies: cough, orthopnea, shortness of breath Gastrointestinal/Abdominal: Reports: abdominal pain, blood in stool, poor fluid intake; Denies: abdomen distended, nausea, vomiting Genitourinary: Denies: burning, discharge, frequency Neurologic/Psychiatric: Reports: anxiety Endocrine: Denies: intolerance to cold, unexplained weight loss Hematologic/Lymphatic: Reports: easy bleeding; Denies: easy bruising Allergies: Coded Allergies: No Known Allergies (Unverified , 06/03/20) All Systems: reviewed and negative except above Subjective patient with continued multiple episodes of hematochezia overnight. patient did not take the second part of his bowel prep as he was highly concerned about worsening hypovolemia Only 1 additional unit RBC given overnight, although 2 ordered. Repeat CBC not done until 6 am Patient reports worsening dizziness and weakness Objective Last 24 Hour Vital Signs Date Time Temp Pulse Resp B/P (MAP) Pulse Ox O2 Delivery O2 Flow Rate FiO2 06/04/20 09:23 79 18 100 06/04/20 08:00 98.6 79 14 120/58 (78) 100 06/04/20 07:00 98.5 79 13 119/63 (81) 100 06/04/20 07:00 79 13 119/63 (81) 100 06/04/20 06:00 88 15 97/61 (73) 99 06/04/20 05:55 95 16 121/96 (104) 100 06/04/20 05:00 90 14 108/61 (77) 99 06/04/20 04:24 89 13 107/65 (79) 100 06/04/20 04:00 Room Air 06/04/20 03:00 86 13 111/57 (75) 100 06/04/20 02:00 85 16 105/54 (71) 100 06/04/20 01:45 86 15 135/56 (82) 100 06/04/20 01:30 86 12 105/55 (72) 100 06/04/20 01:15 88 14 108/59 (75) 100 06/04/20 01:00 87 8 106/59 (75) 100 06/04/20 00:54 87 9 112/64 (80) 100 06/04/20 00:15 95 06/04/20 00:15 98.0 87 13 122/59 (80) 100 06/04/20 00:15 Room Air 06/03/20 21:00 Room Air 06/03/20 20:00 98.6 88 20 115/69 (84) 100 89 06/03/20 16:00 98.3 88 20 127/68 (87) 100 06/03/20 14:37 Room Air 06/03/20 14:25 97.9 17 119/70 98 Room Air 06/03/20 12:14 88 17 Room Air 06/03/20 11:33 97.9 88 17 119/70 98 Room Air 06/03/20 11:33 97.9 88 17 119/70 (86) 98 Room Air Intake and Output 06/03/20 06/04/20 19:00 07:00 Intake Total 240 ml 765.0 ml Output Total 2500 ml Balance 240 ml -1735.0 ml Intake Oral 240 ml IV Total 515.0 ml Blood Product 250 ml Output Urine Total 900 ml Stool Total 1600 ml # Bowel Movements 4 Laboratory Tests 06/03/20 12:00: White Blood Count 7.1, Red Blood Count 2.90L, Hemoglobin 7.6L, Hematocrit 24.0L , Mean Corpuscular Volume 83, Mean Corpuscular Hemoglobin 26.0L, Mean Corpuscular Hemoglobin Concent 31.5L, Red Cell Distribution Width 14.7, Platelet Count 187, Mean Platelet Volume 6.5, Neutrophils (%) (Auto) , Lymphocytes (%) (Auto) , Monocytes (%) (Auto) , Eosinophils (%) (Auto) , Basophils (%) (Auto) , Differential Total Cells Counted 100, Neutrophils % ( Manual) 81H, Lymphocytes % (Manual) 14L, Monocytes % (Manual) 4, Eosinophils % ( Manual) 0, Basophils % (Manual) 1, Band Neutrophils 0, Platelet Estimate Adequate, Platelet Morphology Normal, Hypochromasia 1+, Anisocytosis 1+, Prothrombin Time 10.3, Prothromb Time International Ratio 0.9, Activated Partial Thromboplast Time 23, Sodium Level 138, Potassium Level 4.1, Chloride Level 105, Carbon Dioxide Level 25, Anion Gap 8, Blood Urea Nitrogen 29H, Creatinine 1.1, Estimat Glomerular Filtration Rate > 60, Glucose Level 110H, Calcium Level 8.5, Total Bilirubin 0.3, Aspartate Amino Transf (AST/SGOT) 30, Alanine Aminotransferase (ALT/SGPT) 31, Alkaline Phosphatase 53, Total Protein 7.1, Albumin 3.8, Globulin 3.3, Albumin/Globulin Ratio 1.2 06/03/20 20:35: White Blood Count 6.6, Red Blood Count 2.97L, Hemoglobin 7.8L, Hematocrit 24.5L , Mean Corpuscular Volume 83, Mean Corpuscular Hemoglobin 26.2L, Mean Corpuscular Hemoglobin Concent 31.7L, Red Cell Distribution Width 15.3H, Platelet Count 169, Mean Platelet Volume 6.6, Neutrophils (%) (Auto) 76.8H, Lymphocytes (%) (Auto) 16.0L, Monocytes (%) (Auto) 6.3, Eosinophils (%) (Auto) 0.1, Basophils (%) (Auto) 0.8 06/04/20 03:45: Urine Color Pale yellow, Urine Appearance Clear, Urine pH 5, Urine Specific [place] 1.015, Urine Protein Negative, Urine Glucose (UA) Negative, Urine Ketones Negative, Urine Blood Negative, Urine Nitrite Negative, Urine Bilirubin Negative, Urine Urobilinogen Normal, Urine Leukocyte Esterase Negative 06/04/20 06:50: White Blood Count 5.8, Red Blood Count 2.37L, Hemoglobin 6.5*L, Hematocrit 20.3L , Mean Corpuscular Volume 86, Mean Corpuscular Hemoglobin 27.4, Mean Corpuscular Hemoglobin Concent 32.0, Red Cell Distribution Width 14.6, Platelet Count 133L, Mean Platelet Volume 6.6, Neutrophils (%) (Auto) , Lymphocytes (%) ( Auto) , Monocytes (%) (Auto) , Eosinophils (%) (Auto) , Basophils (%) (Auto) , Differential Total Cells Counted 100, Neutrophils % (Manual) 85H, Lymphocytes % (Manual) 14L, Monocytes % (Manual) 1, Eosinophils % (Manual) 0, Basophils % ( Manual) 0, Band Neutrophils 0, Platelet Estimate DecreasedL, Platelet Morphology Normal, Hypochromasia 1+, Anisocytosis 1+, Prothrombin Time 11.3, Prothromb Time International Ratio 1.0, Activated Partial Thromboplast Time 18L , Sodium Level 142, Potassium Level 3.7, Chloride Level 111H, Carbon Dioxide Level 22, Anion Gap 9, Blood Urea Nitrogen 15, Creatinine 0.9, Estimat Glomerular Filtration Rate > 60, Glucose Level 136H, Calcium Level 7.2L, Total Bilirubin 0.4, Aspartate Amino Transf (AST/SGOT) 25, Alanine Aminotransferase ( ALT/SGPT) 26, Alkaline Phosphatase 33L, Total Protein 5.0L, Albumin 2.5L, Globulin 2.4, Albumin/Globulin Ratio 1.0, Polychromasia 2+, Lactic Acid Level 1.20, Magnesium Level 1.5L Height (Feet): 5 Height (Inches): 7 Weight (Pounds): 160 General Appearance: alert, mild distress EENT: PERRL/EOMI, normal ENT inspection, pharynx normal Neck: non-tender, normal alignment, normal inspection Cardiovascular: normal rate, regular rhythm, no gallop/murmur, no JVD Respiratory/Chest: chest wall non-tender, lungs clear, no respiratory distress Abdomen: normal bowel sounds, soft, no mass, hypoactive bowel sounds Genitourinary/Rectal: other - hematochezia noted Extremities: normal range of motion, no calf tenderness Edema: no edema noted Arm (L), no edema noted Arm (R), no edema noted Leg (L), no edema noted Leg (R), no edema noted Pedal (L), no edema noted Pedal (R) 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 Jun 04, 2020 10:20
--- NOTE | 2020-06-04 10:30 | Procedure Note ---
DATE OF PROCEDURE: 06/04/2020 SURGEON: Ming Machado MD. PROCEDURE: Upper endoscopy with biopsy and colonoscopy. ANESTHESIA: Per Dr. Holt. INSTRUMENT: Olympus adult flexible upper endoscope and colonoscope. INDICATION: GI bleeding. REASON FOR PROCEDURE: The procedure, risks, benefits, and possible consequences, including hemorrhage, aspiration, perforation and infection, and alternative treatments, were explained to the patient/legal guardian by Dr. Ming Machado and the patient/legal guardian understood and accepted these risks. PROCEDURE IN DETAIL: After informed consent was obtained and the patient was adequately sedated, first Olympus upper endoscope was advanced from mouth into the second portion of the duodenum and retroflexion was performed in the stomach. The patient had evidence of medium-sized hiatal hernia. In the stomach, there was diffuse gastritis. Random biopsy from antrum was obtained to rule out H. pylori infection. There was no evidence of any active upper GI bleeding at this time. At this time, the upper endoscope was removed and the patient was turned over for colonoscopy. First, rectal exam was performed, which was positive for internal hemorrhoids. Then, the scope was advanced from rectum into the cecum documented by appendiceal orifice, ileocecal valve, and right upper quadrant palpation. Quality of prep overall was good. The patient had evidence of significant diverticulosis in the left colon without any obvious diverticula in the right colon. The diverticula, the most proximal one was about 40 cm from the anal verge. There was some evidence of blood seen in the colon, mainly in the left colon, but there was some minimum blood also in the right colon. At this time, I do not see any active bright red blood, it is basically old blood seen in the colon. SUMMARY OF FINDINGS: 1. Hiatal hernia. 2. Gastritis, status post biopsy. 3. Bleeding possibly from diverticular bleed in the left colon. 4. Internal hemorrhoids. RECOMMENDATIONS: Keep the patient NPO for now. Transfuse to keep hemoglobin above 7. IV fluids for hydration. Monitor for rebleed. If rebleeds, consider repeat colonoscopy to find the source versus angiogram versus embolization. We will watch closely. I want to thank, Dr. Kiser, for this kind referral. Ming Ceasar Machado DR: Alberto JOB#: [id number] CC: Maurisio Kiser M.D.; Fax#: [phone]
--- NOTE | 2020-06-04 11:00 | NUR ---
NURSE NOTES: RN assisted the patient when got out of bed for void. Denied pain. C/O mild dizziness when he stood up for void. IV site intact and clean. Denied pain. PRBC 2nd bag running without any adverse reactions.
[2020-06-04] MEDS ORDERED: Albuterol Sulfate Syrup 2mg/5ml ORAL PRN (12:00)
[2020-06-04] MEDS ORDERED: Albuterol ud Inhalation HHN SCH (13:00)
[2020-06-04] MEDS ORDERED: Albuterol ud Inhalation HHN PRN (13:00)
--- NOTE | 2020-06-04 13:05 | NUR ---
NURSE NOTES: Pt in bed awake and orientedx4. #4 PRBC running without adverse reactions. Denied pain. No SOB noted. Sating 98% on O2 2LPM via N/C. CBC ordered at 2pm today. Will continue plan of care
[2020-06-04 14:13] LABS: HEMOGLOBIN 7.2 G/DL (14.2-18.0); MEAN CORPUSCULAR VOLUME 88 FL (80-99); PLATELET COUNT 110 K/UL (150-450); RED BLOOD COUNT 2.51 M/UL (4.70-6.10); WHITE BLOOD COUNT 3.8 K/UL (4.8-10.8)
[2020-06-04] MEDS ORDERED: Montelukast 10mg tablet ORAL SCH ×2 (16:30)
[2020-06-04] MEDS ORDERED: Tylenol #3 tab (300mg/30mg) ORAL PRN (18:15)
--- NOTE | 2020-06-04 19:30 | NUR ---
NURSE NOTES: Received report from Arpan HUSTON
--- NOTE | 2020-06-04 20:30 | NUR ---
NURSE NOTES: Patient assisted to bedside commode x2 with episode of x2 lose bloody stool.will inform
--- NOTE | 2020-06-04 21:04 | NUR ---
NURSE NOTES: Dr ARANDA made aware of patient with x2 lose bloody stool with new order CBC lab test today noted and carried patient aware.
[2020-06-04 21:38] LABS: HEMATOCRIT 22.4 % (42.0-52.0); HEMOGLOBIN 7.4 G/DL (14.2-18.0); MEAN CORPUSCULAR VOLUME 86 FL (80-99); PLATELET COUNT 130 K/UL (150-450); WHITE BLOOD COUNT 4.6 K/UL (4.8-10.8)
--- NOTE | 2020-06-04 22:19 | NUR ---
NURSE NOTES: Dr Snow aware of cbc result with new order to transfuse 2 PRBC, also per patient request to order home meds Flector patch for back pain MD agreed noted and carried. patient, charge night and Blood bank aware spoke with Glendy.
[2020-06-04] MEDS ORDERED: FLECTOR PATCH 1.3% TOPIC PRN (22:30)
--- NOTE | 2020-06-04 23:35 | NUR ---
NURSE NOTES: Started to transfuse PRBC#1 no s/s of transfusion reaction. placed call light within easy reach. patient on 2L oxygen via N/C satting 100%. HOB elevated. IV site intact no s/s of infiltration. frequent visual checks continued.
[2020-06-05] VITALS (21 sets, daily range): BP systolic 105–140; BP diastolic 52–89
--- NOTE | 2020-06-05 01:30 | NUR ---
NURSE NOTES: Assisted patient to bedside commode with x3 bloody stool. uses urinal with 300cc urine.
--- NOTE | 2020-06-05 02:00 | NUR ---
NURSE NOTES: Completed #1 PRBC no adverse reaction noted. bed bath given tolerated well. Call light within easy reach. SCD intact on bilateral legs.
--- NOTE | 2020-06-05 04:00 | NUR ---
NURSE NOTES: patient in bed sleeping comfortably. #2 PRBC still infusing. no complain of pain or discomfort. no fever. no diarrhea. no n/v. call light within easy reach. will continue plan of care.
[2020-06-05] MEDS: Piperacillin/Tazobactam 3.375 GM in NS 110 ML IVPB SCH ×3 (04:02→20:00)
[2020-06-05] MEDS: D5 1/2NS w/KCl 20mEq 1,000 ML IV SCH (05:02)
[2020-06-05] MEDS: Vancomycin 1 GM in D5W 275 ML IVPB SCH (05:17)
--- NOTE | 2020-06-05 05:30 | NUR ---
NURSE NOTES: Infused #2 PRBC no adverse reaction noted. patient in bed sleeping comfortably. no fever. call light within easy raech. will continue plan of care.
--- NOTE | 2020-06-05 07:10 | NUR ---
HAND-OFF: Report given to Alayna HUSTON.
--- NOTE | 2020-06-05 07:15 | NUR ---
NURSE NOTES: Received report from Micaela HUSTON.
[2020-06-05 07:40] LABS: BASOPHILS % (AUTO) 1.1 % (0.0-2.0); EOSINOPHILS % (AUTO) 0.1 % (0.0-3.0); HEMATOCRIT 24.7 % (42.0-52.0); HEMOGLOBIN 8.3 G/DL (14.2-18.0); LYMPHOCYTES % (AUTO) 22.6 % (20.0-45.0); MEAN CORPUSCULAR VOLUME 87 FL (80-99); NEUTROPHILS % (AUTO) 69.2 % (45.0-75.0); PLATELET COUNT 102 K/UL (150-450); RED BLOOD COUNT 2.84 M/UL (4.70-6.10); RED CELL DISTRIBUTION WIDTH 13.3 % (11.6-14.8); WHITE BLOOD COUNT 4.4 K/UL (4.8-10.8)
[2020-06-05 07:50] LABS: ANION GAP 5 mmol/L (5-15); BLOOD UREA NITROGEN 8 mg/dL (7-18); CALCIUM 6.8 MG/DL (8.5-10.1); CARBON DIOXIDE 24 MMOL/L (21-32); CHLORIDE 111 MMOL/L (98-107); CREATININE 0.9 MG/DL (0.55-1.30); POTASSIUM 3.5 MMOL/L (3.5-5.1); SODIUM 140 MMOL/L (136-145)
--- NOTE | 2020-06-05 07:51 | NUR ---
NURSE NOTES: Went to pt. room, pt. in bed, awake, a/o x 4. Having blood drawn at bedside by energy operations vice president. No sign of distress. R.A. Denies pain at present. IV site at right FA #20g. and left hand #22g. in placed patent/intact running D5 1/2 NS +20 meq. at 75cc/hr. Per previous shift pt. s/p 2units PRBC last night. Awaiting for 7am CBC result. Bed in low position, locked. Call light within reach. Will cont. to monitor.
[2020-06-05] MEDS ORDERED: Tubing Blood Filter IV ONE (08:23)
[2020-06-05] MEDS ORDERED: NS 275ml ONE (08:23)
--- NOTE | 2020-06-05 08:30 | General Progress Note ---
Assessment/Plan Status: not improved Assessment/Plan: s/p EGD and colonoscopy HH gastritis significant diverticulosis no active bleed over night stable H&H advance diet to full liquid observe for rebleed CBC in am ok to transfer out of icu Subjective ROS Limited/Unobtainable: Yes Allergies: Coded Allergies: No Known Allergies (Unverified , 06/03/20) Subjective min old blood in the rectum Objective Last 24 Hour Vital Signs Date Time Temp Pulse Resp B/P (MAP) Pulse Ox O2 Delivery O2 Flow Rate FiO2 06/05/20 07:00 81 13 138/67 (90) 100 06/05/20 06:30 76 20 105/58 (74) 100 06/05/20 06:00 78 24 107/65 (79) 98 06/05/20 05:30 84 16 131/66 (87) 93 06/05/20 05:00 77 13 114/68 (83) 100 06/05/20 04:30 76 13 120/76 (91) 100 06/05/20 04:00 77 06/05/20 04:00 Nasal Cannula 2.0 06/05/20 04:00 98.1 80 17 125/64 (84) 100 06/05/20 03:30 75 14 131/66 (87) 100 06/05/20 03:00 77 14 134/60 (84) 100 06/05/20 02:30 78 12 120/89 (99) 100 06/05/20 02:03 95 17 130/61 (84) 100 06/05/20 01:30 84 12 112/62 (79) 100 06/05/20 01:00 82 13 111/52 (71) 100 06/05/20 00:30 83 14 113/62 (79) 100 06/05/20 00:00 98.3 84 15 117/64 (81) 100 06/05/20 00:00 Nasal Cannula 2.0 06/05/20 00:00 86 06/04/20 23:32 83 15 116/62 (80) 100 06/04/20 23:00 89 18 107/52 (70) 100 06/04/20 22:30 78 12 131/64 (86) 100 06/04/20 22:00 76 14 128/60 (82) 100 06/04/20 21:01 79 10 129/72 (91) 100 06/04/20 20:00 Nasal Cannula 2.0 06/04/20 20:00 84 06/04/20 20:00 98.4 81 10 133/65 (87) 100 06/04/20 19:00 87 18 135/63 (87) 100 06/04/20 18:00 84 12 126/62 (83) 100 06/04/20 17:00 85 12 120/64 (82) 100 06/04/20 16:00 Nasal Cannula 2.0 06/04/20 16:00 82 06/04/20 16:00 98.4 83 14 120/60 (80) 100 06/04/20 15:00 82 14 122/60 (80) 100 06/04/20 14:07 83 10 119/79 (92) 100 06/04/20 13:00 78 15 126/66 (86) 100 06/04/20 12:00 98.6 77 13 115/70 (85) 100 06/04/20 12:00 Nasal Cannula 2.0 06/04/20 12:00 84 06/04/20 11:00 76 12 118/62 (80) 100 06/04/20 10:00 74 12 114/56 (75) 100 06/04/20 09:33 98.2 89 19 114/73 (87) 99 06/04/20 09:23 79 18 100 Intake and Output 06/04/20 06/05/20 19:00 07:00 Intake Total 2295.00 ml 1360.0 ml Output Total 1450 ml 1800 ml Balance 845.00 ml -440.0 ml Intake Oral 650 ml IV Total 1085.00 ml 860.0 ml Blood Product 560 ml 500 ml Output Urine Total 1450 ml 800 ml Stool Total 1000 ml # Bowel Movements 5 Laboratory Tests 06/04/20 14:05: White Blood Count 3.8L, Red Blood Count 2.51L, Hemoglobin 7.2L, Hematocrit 22.0L , Mean Corpuscular Volume 88, Mean Corpuscular Hemoglobin 28.9, Mean Corpuscular Hemoglobin Concent 33.0, Red Cell Distribution Width 14.0, Platelet Count 110L, Mean Platelet Volume 5.5L, Neutrophils (%) (Auto) , Lymphocytes (%) (Auto) , Monocytes (%) (Auto) , Eosinophils (%) (Auto) , Basophils (%) (Auto) , Differential Total Cells Counted 100, Neutrophils % (Manual) 76H, Lymphocytes % (Manual) 21, Monocytes % (Manual) 3, Eosinophils % (Manual) 0, Basophils % ( Manual) 0, Band Neutrophils 0, Platelet Estimate DecreasedL, Platelet Morphology Normal, Polychromasia 1+, Hypochromasia 1+ 06/04/20 21:30: White Blood Count 4.6L, Red Blood Count 2.60L, Hemoglobin 7.4L, Hematocrit 22.4L , Mean Corpuscular Volume 86, Mean Corpuscular Hemoglobin 28.4, Mean Corpuscular Hemoglobin Concent 33.1, Red Cell Distribution Width 15.0H, Platelet Count 130L, Mean Platelet Volume 7.1, Neutrophils (%) (Auto) , Lymphocytes (%) (Auto) , Monocytes (%) (Auto) , Eosinophils (%) (Auto) , Basophils (%) (Auto) , Differential Total Cells Counted 100, Neutrophils % ( Manual) 72, Lymphocytes % (Manual) 26, Monocytes % (Manual) 2, Eosinophils % ( Manual) 0, Basophils % (Manual) 0, Band Neutrophils 0, Platelet Estimate DecreasedL, Platelet Morphology Normal, Polychromasia 1+, Hypochromasia 1+, Anisocytosis 1+ 06/05/20 07:30: White Blood Count 4.4L, Red Blood Count 2.84L, Hemoglobin 8.3L, Hematocrit 24.7L , Mean Corpuscular Volume 87, Mean Corpuscular Hemoglobin 29.3, Mean Corpuscular Hemoglobin Concent 33.5, Red Cell Distribution Width 13.3, Platelet Count 102L, Mean Platelet Volume 7.3, Neutrophils (%) (Auto) 69.2, Lymphocytes ( %) (Auto) 22.6, Monocytes (%) (Auto) 7.0, Eosinophils (%) (Auto) 0.1, Basophils (%) (Auto) 1.1, Sodium Level 140, Potassium Level 3.5, Chloride Level 111H, Carbon Dioxide Level 24, Anion Gap 5, Blood Urea Nitrogen 8, Creatinine 0.9, Estimat Glomerular Filtration Rate > 60, Glucose Level 150H, Calcium Level 6.8L Height (Feet): 5 Height (Inches): 7 Weight (Pounds): 162 General Appearance: alert EENT: normal ENT inspection Neck: supple Cardiovascular: normal rate Respiratory/Chest: lungs clear Abdomen: normal bowel sounds, non tender, soft Extremities: non-tender Ming Machado MD Jun 05, 2020 08:30
--- NOTE | 2020-06-05 08:35 | NUR ---
NURSE NOTES: Assisted pt. to the commode for bowel movement. Noted bloody stool. Paged Dr. Machado and awaiting for response.
--- NOTE | 2020-06-05 08:36 | NUR ---
NURSE NOTES: Seen by Dr. Snow and also notified him regarding bloody stool. And also received order may transfer pt. to SDU. CN made aware.
--- NOTE | 2020-06-05 09:32 | General Progress Note ---
Assessment/Plan Problem List: (1) Gastrointestinal hemorrhage ICD Codes: K92.2 - Gastrointestinal hemorrhage, unspecified SNOMED: 98619113 (2) Testosterone deficiency in male ICD Codes: E29.1 - Testicular hypofunction SNOMED: 258831628, 8368698849171 (3) Internal hemorrhoid ICD Codes: K64.8 - Other hemorrhoids SNOMED: 48439645 (4) HIV (human immunodeficiency virus infection) ICD Codes: B20 - Human immunodeficiency virus [HIV] disease SNOMED: 90277307 (5) Asthma ICD Codes: J45.909 - Unspecified asthma, uncomplicated SNOMED: 530859390 (6) Hypertension ICD Codes: I10 - Essential (primary) hypertension SNOMED: 38807251 (7) GERD (gastroesophageal reflux disease) ICD Codes: K21.9 - Gastro-esophageal reflux disease without esophagitis SNOMED: 710963466 (8) Osteoarthritis ICD Codes: M19.90 - Unspecified osteoarthritis, unspecified site SNOMED: 049594094 (9) Diverticulosis ICD Codes: K57.90 - Diverticulosis of intestine, part unspecified, without perforation or abscess without bleeding SNOMED: 324615271 (10) CAD (coronary artery disease) ICD Codes: I25.10 - Atherosclerotic heart disease of [place] coronary artery without angina pectoris SNOMED: 47133055 (11) Hip joint replacement status ICD Codes: Z96.649 - Presence of unspecified artificial hip joint SNOMED: 54615910, 371193048, 614214373, 563948438 Status: not improved Assessment/Plan: This is a 69 year old gentleman with a history of well controlled HIV, hypertension, known diverticulosis, internal hemorrhoids, using daily Meloxicam for chronic arthritis, GERD, well controlled asthma who is presenting with 1 week hematochezia #Acute blood loss anemia #Gastrointestinal hemorrhage, presumed lower source #Diverticulosis #Internal hemorrhoids #Colonic polyps discovered on colonoscopy 5 years ago - differential includes diverticular bleedding, AVM, hemorrhoidal bleeding, polyp bleeding, or other lower GI source. less likely to be upper GI source as a brisk upper bleed ongoing for over 1 week would likely present in a much more critical state - patient s/p 6 unit RBC - hemoglobin this morning improved to ~8 - monitor patient closely in step down unit given continued need for blood products - trend CBC - GI consulted, appreciate recommendations. Colonoscopy done with likely diverticular bleeding although no active bleeding was able to be identified. Spoke to GI physician, will monitor in step down unit. Ongoing bleeding is believed to be residual bleeding and not active ongoing bleeding - Consult Surgery Dr. Shirley per PCP preference in case bleeding does not improve - discussed with nursing to attempt to maintain 2 large bore peripheral IV minimum at all times - no evidence of coagulopathy or hemolysis on labs - hold all NSAIDs - hold chemical DVT prophylaxis #Chills #Generalized malaise: unclear etiology. could be related to a minor transfusion reaction, but patient reports symptoms preceding blood. could also be related to blood loss as above - continue broadly with Vancomycin/Zosyn (06/03 - ) and follow up blood culture. UA and CXR unrevealing for source of infection - if cultures negative, can likely de-escalate but in light of tenuous clinical scenario will cover with antibiotics at this time #Asthma: well controlled. Followed by Dr. Camron Alvarez as an outpatient - continue home Trelegy, albuterol, singulair #HIV: well controlled. has prior history of AIDS and MAC per PCP - continue home Isentress/Intelence #GERD - continue home protonix #HTN - continue home ARB #Insomnia - continue home Lunesta prn - continue home Remeron #Neuropathy - continue home gabapentin 600 mg QHS #Chronic arthritis: of back, legs, feet - hold home meloxicam in light of bleed - topical diclofenac for pain per patient preference - tylenol PRN for now and consider topicals/opioids if pain uncontrolled #Coronary artery disease: seen on Calcium CT scan, asymptomatic without angina - continue home crestor - hold aspirin in light of active bleeding #Testosterone deficiency - on home testosterone weekly injections #FEN/GI - advancing to full liquid diet, ok with GI - hold DVT ppx for active GI bleed - maintain 2+ large bore peripheral IV if possible #Dispo: The patient is being monitored in the step down unit. He will likely be discharged home pending resolution of bleeding, possibly in 2-3 days I spent 40 minutes in the care of this patient. Over 20 minutes was involving direct face to face patient care as well as counseling/discussion of care with the patient. I also coordinated care with his primary care provider Dr. Kiser as well as Supervisor Mapping and nursing staff including Surgery Dr. Dillon. Subjective Date patient seen: Jun 05, 2020 Time patient seen: 09:26 Constitutional: Reports: weakness; Denies: chills, fever HEENT: Denies: eye pain, blurred vision, double vision Cardiovascular: Reports: lightheadedness; Denies: chest pain, edema, irregular heart rate Respiratory: Denies: cough, orthopnea, shortness of breath Gastrointestinal/Abdominal: Reports: blood in stool, rectal bleeding; Denies: abdomen distended, abdominal pain, nausea, vomiting Genitourinary: Denies: discharge, frequency Neurologic/Psychiatric: Reports: headache Endocrine: Denies: excessive sweating, intolerance to cold, intolerance to heat Hematologic/Lymphatic: Reports: easy bleeding; Denies: easy bruising Allergies: Coded Allergies: No Known Allergies (Unverified , 06/03/20) All Systems: reviewed and negative except above Subjective Patient received 2 additional RBC overnight. underwent colonoscopy without active bleeding, but concerning for possible sigmoid diverticular bleed. continued episodes of hematochezia reported by patient and nursing overnight and this morning. feels improved, but still very weak Objective Last 24 Hour Vital Signs Date Time Temp Pulse Resp B/P (MAP) Pulse Ox O2 Delivery O2 Flow Rate FiO2 06/05/20 09:00 75 24 125/69 (87) 100 06/05/20 08:00 97.7 79 16 135/74 (94) 100 06/05/20 08:00 Nasal Cannula 2.0 06/05/20 07:00 81 13 138/67 (90) 100 06/05/20 06:30 76 20 105/58 (74) 100 06/05/20 06:00 78 24 107/65 (79) 98 06/05/20 05:30 84 16 131/66 (87) 93 06/05/20 05:00 77 13 114/68 (83) 100 06/05/20 05:00 77 13 114/68 (83) 100 06/05/20 04:30 76 13 120/76 (91) 100 06/05/20 04:30 76 13 120/76 (91) 100 06/05/20 04:00 77 06/05/20 04:00 Nasal Cannula 2.0 06/05/20 04:00 80 17 125/64 (84) 100 06/05/20 04:00 98.1 80 17 125/64 (84) 100 06/05/20 03:30 75 14 131/66 (87) 100 06/05/20 03:30 75 14 131/66 (87) 100 06/05/20 03:00 77 14 134/60 (84) 100 06/05/20 03:00 77 14 134/60 (84) 100 06/05/20 02:30 78 12 120/89 (99) 100 06/05/20 02:30 78 12 120/89 (99) 100 06/05/20 02:03 95 17 130/61 (84) 100 06/05/20 02:03 95 17 130/61 (84) 84 06/05/20 01:30 84 12 112/62 (79) 100 06/05/20 01:30 84 12 112/62 (79) 100 06/05/20 01:00 82 13 111/52 (71) 100 06/05/20 01:00 82 13 111/52 (71) 100 06/05/20 00:30 83 14 113/62 (79) 100 06/05/20 00:30 83 14 113/62 (79) 100 06/05/20 00:00 84 15 117/64 (81) 100 06/05/20 00:00 98.3 84 15 117/64 (81) 100 06/05/20 00:00 Nasal Cannula 2.0 06/05/20 00:00 86 06/04/20 23:32 83 15 116/62 (80) 100 06/04/20 23:00 89 18 107/52 (70) 100 06/04/20 22:30 78 12 131/64 (86) 100 06/04/20 22:00 76 14 128/60 (82) 100 06/04/20 21:01 79 10 129/72 (91) 100 06/04/20 20:00 Nasal Cannula 2.0 06/04/20 20:00 84 06/04/20 20:00 98.4 81 10 133/65 (87) 100 06/04/20 19:00 87 18 135/63 (87) 100 06/04/20 18:00 84 12 126/62 (83) 100 06/04/20 17:00 85 12 120/64 (82) 100 06/04/20 16:00 Nasal Cannula 2.0 06/04/20 16:00 82 06/04/20 16:00 98.4 83 14 120/60 (80) 100 06/04/20 15:00 82 14 122/60 (80) 100 06/04/20 14:07 83 10 119/79 (92) 100 06/04/20 13:00 78 15 126/66 (86) 100 06/04/20 12:00 98.6 77 13 115/70 (85) 100 06/04/20 12:00 Nasal Cannula 2.0 06/04/20 12:00 84 06/04/20 11:00 76 12 118/62 (80) 100 06/04/20 10:00 74 12 114/56 (75) 100 06/04/20 09:33 98.2 89 19 114/73 (87) 99 Intake and Output 06/04/20 06/05/20 19:00 07:00 Intake Total 2295.00 ml 1360.0 ml Output Total 1450 ml 1800 ml Balance 845.00 ml -440.0 ml Intake Oral 650 ml IV Total 1085.00 ml 860.0 ml Blood Product 560 ml 500 ml Output Urine Total 1450 ml 800 ml Stool Total 1000 ml # Bowel Movements 5 Laboratory Tests 06/04/20 14:05: White Blood Count 3.8L, Red Blood Count 2.51L, Hemoglobin 7.2L, Hematocrit 22.0L , Mean Corpuscular Volume 88, Mean Corpuscular Hemoglobin 28.9, Mean Corpuscular Hemoglobin Concent 33.0, Red Cell Distribution Width 14.0, Platelet Count 110L, Mean Platelet Volume 5.5L, Neutrophils (%) (Auto) , Lymphocytes (%) (Auto) , Monocytes (%) (Auto) , Eosinophils (%) (Auto) , Basophils (%) (Auto) , Differential Total Cells Counted 100, Neutrophils % (Manual) 76H, Lymphocytes % (Manual) 21, Monocytes % (Manual) 3, Eosinophils % (Manual) 0, Basophils % ( Manual) 0, Band Neutrophils 0, Platelet Estimate DecreasedL, Platelet Morphology Normal, Polychromasia 1+, Hypochromasia 1+ 06/04/20 21:30: White Blood Count 4.6L, Red Blood Count 2.60L, Hemoglobin 7.4L, Hematocrit 22.4L , Mean Corpuscular Volume 86, Mean Corpuscular Hemoglobin 28.4, Mean Corpuscular Hemoglobin Concent 33.1, Red Cell Distribution Width 15.0H, Platelet Count 130L, Mean Platelet Volume 7.1, Neutrophils (%) (Auto) , Lymphocytes (%) (Auto) , Monocytes (%) (Auto) , Eosinophils (%) (Auto) , Basophils (%) (Auto) , Differential Total Cells Counted 100, Neutrophils % ( Manual) 72, Lymphocytes % (Manual) 26, Monocytes % (Manual) 2, Eosinophils % ( Manual) 0, Basophils % (Manual) 0, Band Neutrophils 0, Platelet Estimate DecreasedL, Platelet Morphology Normal, Polychromasia 1+, Hypochromasia 1+, Anisocytosis 1+ 06/05/20 07:30: White Blood Count 4.4L, Red Blood Count 2.84L, Hemoglobin 8.3L, Hematocrit 24.7L , Mean Corpuscular Volume 87, Mean Corpuscular Hemoglobin 29.3, Mean Corpuscular Hemoglobin Concent 33.5, Red Cell Distribution Width 13.3, Platelet Count 102L, Mean Platelet Volume 7.3, Neutrophils (%) (Auto) 69.2, Lymphocytes ( %) (Auto) 22.6, Monocytes (%) (Auto) 7.0, Eosinophils (%) (Auto) 0.1, Basophils (%) (Auto) 1.1, Sodium Level 140, Potassium Level 3.5, Chloride Level 111H, Carbon Dioxide Level 24, Anion Gap 5, Blood Urea Nitrogen 8, Creatinine 0.9, Estimat Glomerular Filtration Rate > 60, Glucose Level 150H, Calcium Level 6.8L Height (Feet): 5 Height (Inches): 7 Weight (Pounds): 162 General Appearance: WD/WN, alert, mild distress EENT: PERRL/EOMI, normal ENT inspection, pharynx normal Neck: non-tender, normal alignment, supple Cardiovascular: normal peripheral pulses, normal rate, regular rhythm, no JVD Respiratory/Chest: chest wall non-tender, lungs clear, no respiratory distress Abdomen: non tender, soft, no mass, hypoactive bowel sounds Pelvis: other - hematochezia Extremities: normal range of motion, normal inspection Edema: no edema noted Arm (L), no edema noted Arm (R), no edema noted Leg (L), no edema noted Leg (R), no edema noted Pedal (L), no edema noted Pedal (R) Neurologic: alert, oriented x 3, responsive, normal mood/affect Skin: normal pigmentation, warm/dry Carlos Snow M.D. Jun 05, 2020 09:32
[2020-06-05] MEDS ORDERED: Calcium Gluconate 10% 2 GM in NS 110 ML IV ONE ×2 (09:45→12:00)
[2020-06-05] MEDS: TRELEGY ELLIPTA INH SCH (09:49)
[2020-06-05] MEDS: Irbesartan 150mg tablet ORAL SCH (09:54)
[2020-06-05] MEDS: ISENTRESS 400 MG ORAL SCH (09:54)
--- NOTE | 2020-06-05 10:50 | NUR ---
CASE MANAGEMENT:REVIEW 06/03/20 69 YR OLE MALE PRESENTED TO ER CC; RECTAL BLEEDING X1 WEEK SI: LGIB 97.8 88 17 119/70 98% ON RA H/H-7.6/24.0 BUN+29 IS: 1L NS BOLUS TRANSFUSES 1 UNIT PRBC'S : TO ICU 06/04/20 SI: LGIB 98.5 79 13 96/61 100% ON 2L/NC H/H-6.5/20.3 IS: TRANSFUSE 4 UNITS PRBC'S IV VANCOMYCIN Q12 IV ZOSYN Q8HRS IVF@75/HR : ICU STATUS PLAN: EGD W/BIOPSY AND COLONOSCOPY TODAY 06/05/20 SI: ACUTE BLOOD LOSS ANEMIA DIVERTICULOSIS. INTERNAL HEMORRHOIDS 97.7 79 16 105/58 100% ON 2L/NC H/H-8.3/24.7 PLT-102 IS: IV CA GLUCONATE X1 NEURONTIN PO QHS REMERON PO QHS SINGULAR PO QPM HARRT REGIMEN : TRANSFER TO STEP DOWN UNIT
[2020-06-05] MEDS ORDERED: Tylenol #3 tab (300mg/30mg) ORAL PRN (10:59)
[2020-06-05] MEDS ORDERED: D5 1/2NS w/KCl 20mEq 1,000 ML IV SCH (11:00)
[2020-06-05] MEDS ORDERED: Albuterol ud Inhalation HHN PRN (11:00)
--- NOTE | 2020-06-05 11:01 | NUR ---
NURSE NOTES: Hand over report given to Min RN. Pt. remain stable. H/H is better. But still noted with bloody stool.
--- NOTE | 2020-06-05 11:01 | NUR ---
NURSE NOTES: Received report from ROBEL Catalan. Pt in bed awake and orientedx4. No c/o pain. IV site in left hand 22G and LAC 20G patent and intact. Side railsx2 up for safety. Call light within easy reach. Bed side commode at the bedside. Bed in lowest position and locked. On SCD to bilateral lower legs. On bed alarm. court recording monitor applied. On room air and sating 98%. Will continue plan of care.
--- NOTE | 2020-06-05 12:30 | NUR ---
NURSE NOTES: Noted about 50cc of blood per rectum. BP 121/68, P 72 noted. Will continue plan of care.
--- NOTE | 2020-06-05 12:41 | Consultation ---
History of Present Illness General Date patient seen: Jun 05, 2020 Reason for Hospitalization: Gastrointestinal Bleed Present Illness HPI This is a very pleasant 69-year-old male history of arthritis, diverticulosis, hemorrhoids who presented for lower GI bleed. Patient has had bright red blood per rectum for the past week. Seen by his primary care doctor and had a hemoglobin done on Saturday showing a hemoglobin of 10. His symptoms have continued and he is complaining of some generalized weakness and dizziness so referred to the ER for further evaluation. Patient is followed by GI and last colonoscopy was 5 years ago showing polyps. Patient denies any abdominal pain at this time. Was admitted further care management. Persistently had acute GI bleed with hemoglobin as low as 6. Had noted bright red blood in his rectum that progressively worsened into including the entire toilet bowl recently. Has been transfused 6 units PRBC and had a colonoscopy and EGD during admission. Hemoglobin still remains low without appropriate response. Surgery called to evaluate and assist with care. Patient seen, patient evaluated, chart reviewed. Colonoscopy report identifies significant diverticulosis on the left colon with some blood residue identified but no active bleeding. EGD without etiology of bleeding. Patient states he feels well but still identifying blood with his bowel movements. States he has urgency at times and notes blood when he has a bowel movement. No similar history in the past. This is a recent isolated event that it has persisted. Allergies: Coded Allergies: No Known Allergies (Unverified , 06/03/20) COVID-19 Screening Contact w/high risk pt: No Recent Travel to affected area: No Experienced COVID-19 symptoms?: No Medication History Scheduled Aspirin (Aspirin), 81 MG PO DAILY, (Reported) Etravirine* (Intelence*), 200 MG ORAL EVERY 12 HOURS Fluticasone Propionate (Flonase Allergy Relief), 9.9 ML NS HS, (Reported) Fluticasone Propionate (Flovent Hfa), Unknown Dose INH BID, (Reported) Gabapentin* (Neurontin*), 600 MG ORAL DAILY, (Reported) Meloxicam* (Meloxicam*), 15 MG PO DAILY, (Reported) Montelukast Sodium* (Singulair*), 10 MG ORAL DAILY, (Reported) Pantoprazole* (Protonix*), 40 MG ORAL DAILY, (Reported) Raltegravir (Isentress), 400 MG ORAL EVERY 12 HOURS, (Reported) Rosuvastatin Calcium* (Crestor*), 40 MG ORAL DAILY, (Reported) Testosterone Cypionate (Depo-Testosterone), 1 MG IM NEEDED, (Reported) Scheduled PRN Eszopiclone (Lunesta), 3 MG ORAL BEDTIME PRN for Insomnia, (Reported) Eszopiclone (Lunesta), 3 MG ORAL BEDTIME PRN, (Reported) Miscellaneous Medications Irbesartan (Irbesartan), 150 MG PO, (Reported) Umeclidinium Brm/Vilanterol Tr (Anoro Ellipta 62.5-25 Mcg INH), (Reported) Discontinued Medications Losartan Potassium* (Losartan Potassium*), 50 MG ORAL DAILY, (Reported) Discontinued Reason: Prescription changed Raltegravir Potassium (Isentress), 50 MG ORAL TWICE A DAY, (Reported) Discontinued Reason: Prescription changed Patient History History Provided By: Patient, Medical Record, PMD Healthcare decision maker Resuscitation status Advanced Directive on File Past Medical/Surgical History Past Medical/Surgical History: (1) CAD (coronary artery disease) (2) Diverticulosis (3) Osteoarthritis (4) GERD (gastroesophageal reflux disease) (5) Hypertension (6) Asthma (7) HIV (human immunodeficiency virus infection) (8) Internal hemorrhoid (9) Testosterone deficiency in male (10) Gastrointestinal hemorrhage Family History Family History: Patient reports no known family medical history. Review of Systems Review of Symptoms General ROS: no weight loss or fever Psychological ROS: no depression or mood changes, no memory loss Ophthalmic ROS: no visual changes or eye irritation ENT ROS: no nasal congestion, hearing loss, dizziness Allergy and Immunology ROS: no allergic symptoms or urticaria Hematological and Lymphatic ROS: no swollen glands, unusual bleeding or bruising Endocrine ROS: no polyuria, polydipsia, weight changes, temperature intolerance Respiratory ROS: no cough, shortness of breath, or wheezing Cardiovascular ROS: no chest pain or dyspnea on exertion Gastrointestinal ROS: denies abdominal pain, +bright red blood in stool. Musculoskeletal ROS: no myalgias or arthralgias Neurological ROS: no TIA or stroke symptoms Dermatological ROS: no new or changing skin lesions, rashes or pruritis Physical Exam Physical Exam General appearance: alert, cooperative, no distress, appears stated age Head: Normocephalic, without obvious abnormality, atraumatic Eyes: conjunctivae/corneas clear. PERRL, EOM's intact. Fundi benign Throat: Lips, mucosa, and tongue normal. Teeth and gums normal Neck: supple, symmetrical, trachea midline, no adenopathy, thyroid: not enlarged, symmetric, no tenderness/mass/nodules, no carotid bruit and no JVD Lungs: clear to auscultation bilaterally Heart: regular rate and rhythm, S1, S2 normal, no murmur, click, rub or gallop Abdomen: soft, non-tender. Bowel sounds normal. No masses, no organomegaly Extremities: extremities normal, atraumatic, no cyanosis or edema Pulses: 2+ and symmetric Skin: Skin color, texture, turgor normal. No rashes or lesions Neurologic: Grossly normal Last 24 Hour Vital Signs Date Time Temp Pulse Resp B/P (MAP) Pulse Ox O2 Delivery O2 Flow Rate FiO2 06/05/20 12:00 98.1 80 16 140/70 (93) 98 06/05/20 12:00 83 06/05/20 09:00 75 24 125/69 (87) 100 06/05/20 08:00 97.7 79 16 135/74 (94) 100 06/05/20 08:00 Nasal Cannula 2.0 06/05/20 08:00 75 06/05/20 07:00 81 13 138/67 (90) 100 06/05/20 06:30 76 20 105/58 (74) 100 06/05/20 06:00 78 24 107/65 (79) 98 06/05/20 05:30 84 16 131/66 (87) 93 06/05/20 05:00 77 13 114/68 (83) 100 06/05/20 05:00 77 13 114/68 (83) 100 06/05/20 04:30 76 13 120/76 (91) 100 06/05/20 04:30 76 13 120/76 (91) 100 06/05/20 04:00 77 06/05/20 04:00 Nasal Cannula 2.0 06/05/20 04:00 80 17 125/64 (84) 100 06/05/20 04:00 98.1 80 17 125/64 (84) 100 06/05/20 03:30 75 14 131/66 (87) 100 06/05/20 03:30 75 14 131/66 (87) 100 06/05/20 03:00 77 14 134/60 (84) 100 06/05/20 03:00 77 14 134/60 (84) 100 06/05/20 02:30 78 12 120/89 (99) 100 06/05/20 02:30 78 12 120/89 (99) 100 06/05/20 02:03 95 17 130/61 (84) 100 06/05/20 02:03 95 17 130/61 (84) 84 06/05/20 01:30 84 12 112/62 (79) 100 06/05/20 01:30 84 12 112/62 (79) 100 06/05/20 01:00 82 13 111/52 (71) 100 06/05/20 01:00 82 13 111/52 (71) 100 06/05/20 00:30 83 14 113/62 (79) 100 06/05/20 00:30 83 14 113/62 (79) 100 06/05/20 00:00 84 15 117/64 (81) 100 06/05/20 00:00 98.3 84 15 117/64 (81) 100 06/05/20 00:00 Nasal Cannula 2.0 06/05/20 00:00 86 06/04/20 23:32 83 15 116/62 (80) 100 06/04/20 23:00 89 18 107/52 (70) 100 06/04/20 22:30 78 12 131/64 (86) 100 06/04/20 22:00 76 14 128/60 (82) 100 06/04/20 21:01 79 10 129/72 (91) 100 06/04/20 20:00 Nasal Cannula 2.0 06/04/20 20:00 84 06/04/20 20:00 98.4 81 10 133/65 (87) 100 06/04/20 19:00 87 18 135/63 (87) 100 06/04/20 18:00 84 12 126/62 (83) 100 06/04/20 17:00 85 12 120/64 (82) 100 06/04/20 16:00 Nasal Cannula 2.0 06/04/20 16:00 82 06/04/20 16:00 98.4 83 14 120/60 (80) 100 06/04/20 15:00 82 14 122/60 (80) 100 06/04/20 14:07 83 10 119/79 (92) 100 06/04/20 13:00 78 15 126/66 (86) 100 Intake and Output 06/04/20 06/05/20 19:00 07:00 Intake Total 2295.00 ml 1360.0 ml Output Total 1450 ml 1800 ml Balance 845.00 ml -440.0 ml Intake Oral 650 ml IV Total 1085.00 ml 860.0 ml Blood Product 560 ml 500 ml Output Urine Total 1450 ml 800 ml Stool Total 1000 ml # Bowel Movements 5 Laboratory Tests Test 06/04/20 14:05 06/04/20 21:30 06/05/20 07:30 White Blood Count 3.8 K/UL (4.8-10.8) L 4.6 K/UL (4.8-10.8) L 4.4 K/UL (4.8-10.8) L Red Blood Count 2.51 M/UL (4.70-6.10) L 2.60 M/UL (4.70-6.10) L 2.84 M/UL (4.70-6.10) L Hemoglobin 7.2 G/DL (14.2-18.0) L 7.4 G/DL (14.2-18.0) L 8.3 G/DL (14.2-18.0) L Hematocrit 22.0 % (42.0-52.0) L 22.4 % (42.0-52.0) L 24.7 % (42.0-52.0) L Mean Corpuscular Volume 88 FL (80-99) 86 FL (80-99) 87 FL (80-99) Mean Corpuscular Hemoglobin 28.9 PG (27.0-31.0) 28.4 PG (27.0-31.0) 29.3 PG (27.0-31.0) Mean Corpuscular Hemoglobin Concent 33.0 G/DL (32.0-36.0) 33.1 G/DL (32.0-36.0) 33.5 G/DL (32.0-36.0) Red Cell Distribution Width 14.0 % (11.6-14.8) 15.0 % (11.6-14.8) H 13.3 % (11.6-14.8) Platelet Count 110 K/UL (150-450) L 130 K/UL (150-450) L 102 K/UL (150-450) L Mean Platelet Volume 5.5 FL (6.5-10.1) L 7.1 FL (6.5-10.1) 7.3 FL (6.5-10.1) Neutrophils (%) (Auto) % (45.0-75.0) % (45.0-75.0) 69.2 % (45.0-75.0) Lymphocytes (%) (Auto) % (20.0-45.0) % (20.0-45.0) 22.6 % (20.0-45.0) Monocytes (%) (Auto) % (1.0-10.0) % (1.0-10.0) 7.0 % (1.0-10.0) Eosinophils (%) (Auto) % (0.0-3.0) % (0.0-3.0) 0.1 % (0.0-3.0) Basophils (%) (Auto) % (0.0-2.0) % (0.0-2.0) 1.1 % (0.0-2.0) Differential Total Cells Counted 100 100 Neutrophils % (Manual) 76 % (45-75) H 72 % (45-75) Lymphocytes % (Manual) 21 % (20-45) 26 % (20-45) Monocytes % (Manual) 3 % (1-10) 2 % (1-10) Eosinophils % (Manual) 0 % (0-3) 0 % (0-3) Basophils % (Manual) 0 % (0-2) 0 % (0-2) Band Neutrophils 0 % (0-8) 0 % (0-8) Platelet Estimate Decreased L Decreased L Platelet Morphology Normal Normal Polychromasia 1+ 1+ Hypochromasia 1+ 1+ Anisocytosis 1+ Sodium Level 140 MMOL/L (136-145) Potassium Level 3.5 MMOL/L (3.5-5.1) Chloride Level 111 MMOL/L (98-107) H Carbon Dioxide Level 24 MMOL/L (21-32) Anion Gap 5 mmol/L (5-15) Blood Urea Nitrogen 8 mg/dL (7-18) Creatinine 0.9 MG/DL (0.55-1.30) Estimat Glomerular Filtration Rate > 60 mL/min (>60) Glucose Level 150 MG/DL (74-106) H Calcium Level 6.8 MG/DL (8.5-10.1) L Height (Feet): 5 Height (Inches): 7 Weight (Pounds): 162 Medications Current Medications Medications (Trade) Dose Ordered Sig/Yonatan Route PRN Reason Start Time Stop Time Status Last Admin Dose Admin Acetaminophen (Tylenol) 650 mg Q4H PRN ORAL Mild Pain (Pain Scale 1-3) 06/05/20 10:59 07/03/20 10:58 Acetaminophen/ Codeine Phosphate (Tylenol #3) 1 tab Q6H PRN ORAL pain 4-10 06/05/20 10:59 06/11/20 10:58 Albuterol Sulfate (Proventil) 2.5 mg TIDRT PRN HHN Shortness of Breath 06/05/20 11:00 06/09/20 10:59 Calcium Gluconate 2 gm/Sodium Chloride 130 ml @ 130 mls/hr ONCE ONCE IV 06/05/20 12:00 06/05/20 12:59 Dextrose (Dextrose 50%) 25 ml Q30M PRN IV Hypoglycemia 06/05/20 11:00 09/01/20 16:59 Dextrose (Dextrose 50%) 50 ml Q30M PRN IV Hypoglycemia 06/05/20 11:00 09/01/20 16:59 Dextrose/ Electrolytes 1,000 ml @ 75 mls/hr [id number] IV 06/05/20 11:00 07/03/20 01:59 06/05/20 11:46 Gabapentin (Neurontin) 600 mg QHS ORAL 06/05/20 21:00 07/03/20 20:59 Mirtazapine (Remeron) 15 mg BEDTIME ORAL 06/05/20 21:00 09/02/20 20:59 Montelukast Sodium (Singulair) 10 mg QPM ORAL 06/05/20 16:30 09/02/20 16:29 Patient Own Medication (Patient's Own Inhaler) 1 puff DAILY INH 06/06/20 09:00 07/04/20 08:59 Patient Own Medication (Patient's Own Med) 1 ea BID ORAL 06/05/20 18:00 07/03/20 20:59 Patient Own Medication (Patient's Own Med) 1 ea BID ORAL 06/05/20 18:00 07/03/20 20:59 Patient Own Medication (Patient's Own Med) 1 ea DAILY ORAL 06/06/20 09:00 07/04/20 08:59 Patient Own Medication (Patient's Own Med) 1 ea DAILY ORAL 06/06/20 09:00 07/04/20 08:59 Patient Own Medication (Patient's Own Med) 1 ea Q12H PRN TOPIC back pain 06/05/20 22:30 07/04/20 22:29 UNV Patient Own Medication (Patient's Own Med) 1 ea QHS ORAL 06/05/20 21:00 07/03/20 20:59 Patient Own Medication (Patient's Own Med) 1 ea QHS PRN ORAL insomnia 06/05/20 21:00 07/03/20 17:29 Piperacillin Sod/ Tazobactam Sod 3.375 gm/Sodium Chloride 110 ml @ 27.5 mls/hr Q8H IVPB 06/05/20 12:00 06/11/20 11:59 06/05/20 11:47 [facility] 1 ea DAILY MISC 06/06/20 09:00 07/03/20 22:14 Vancomycin HCl 1 gm/Dextrose 275 ml @ 184 mls/hr Q12H IVPB 06/05/20 18:00 06/09/20 05:59 Assessment/Plan Problem List: (1) CAD (coronary artery disease) ICD Codes: I25.10 - Atherosclerotic heart disease of [place] coronary artery without angina pectoris SNOMED: 00993868 (2) Diverticulosis ICD Codes: K57.90 - Diverticulosis of intestine, part unspecified, without perforation or abscess without bleeding SNOMED: 516683948 (3) Osteoarthritis ICD Codes: M19.90 - Unspecified osteoarthritis, unspecified site SNOMED: 461291706 (4) GERD (gastroesophageal reflux disease) ICD Codes: K21.9 - Gastro-esophageal reflux disease without esophagitis SNOMED: 985276408 (5) Hypertension ICD Codes: I10 - Essential (primary) hypertension SNOMED: 76697732 (6) Asthma ICD Codes: J45.909 - Unspecified asthma, uncomplicated SNOMED: 863817532 (7) HIV (human immunodeficiency virus infection) ICD Codes: B20 - Human immunodeficiency virus [HIV] disease SNOMED: 86902717 (8) Internal hemorrhoid ICD Codes: K64.8 - Other hemorrhoids SNOMED: 64073583 (9) Testosterone deficiency in male ICD Codes: E29.1 - Testicular hypofunction SNOMED: 968166246, 7563125515140 (10) Gastrointestinal hemorrhage Assessment & Plan: 69-year-old male with GI bleed likely etiology diverticulosis left colon. EGD and colonoscopy report identified. History identified. Isolated events over the past week with progressively worsening GI bleed significant anemia not appropriately responsive to blood transfusion received 6 units thus far. No active acute bleeding currently but still identifying some blood in his stool potentially old residue versus slow bleed. I had a long discussion with the patient at the bedside in regards to findings and care plan. Given above there is a possibility he may have continued bleeding and will recommend surgical intervention colectomy. Will discuss case with the patient primary care physician and GI. Multidisciplinary care plan will be initiated. Patient is currently tolerating stable and safe. Will monitor. Trend labs. IV fluids. Will monitor bowel movements. Will follow with recommendations. Thank you for let me participate in patient's care. ICD Codes: K92.2 - Gastrointestinal hemorrhage, unspecified SNOMED: 35594010 Tye Shirley Jun 05, 2020 12:41
--- NOTE | 2020-06-05 15:30 | NUR ---
NURSE NOTES: Note about 300cc of dark red color blood per rectum. BP 122/71, p 78, T 98.0F noted. Will continue plan of care.
[2020-06-05] MEDS ORDERED: D5 1/2NS 1000ml IV ONE (16:14)
[2020-06-05] MEDS ORDERED: Montelukast 10mg tablet ORAL SCH (16:30)
[2020-06-05 17:37] LABS: BASOPHILS % (AUTO) 0.8 % (0.0-2.0); EOSINOPHILS % (AUTO) 0.1 % (0.0-3.0); HEMATOCRIT 25.1 % (42.0-52.0); HEMOGLOBIN 8.3 G/DL (14.2-18.0); LYMPHOCYTES % (AUTO) 21.6 % (20.0-45.0); MEAN CORPUSCULAR VOLUME 87 FL (80-99); MONOCYTES % (AUTO) 6.8 % (1.0-10.0); NEUTROPHILS % (AUTO) 70.8 % (45.0-75.0); PLATELET COUNT 122 K/UL (150-450); RED BLOOD COUNT 2.86 M/UL (4.70-6.10); RED CELL DISTRIBUTION WIDTH 14.3 % (11.6-14.8); WHITE BLOOD COUNT 4.5 K/UL (4.8-10.8)
[2020-06-05] MEDS ORDERED: Vancomycin 1 GM in D5W 275 ML IVPB SCH (18:00)
--- NOTE | 2020-06-05 18:09 | Discharge Summary ---
Discharge Summary Hospital Course Date of Admission Jun 03, 2020 at 12:18 Date of Discharge 06/05/2020 Admitting Diagnosis LOWER G.I.BLEED Reason for Hospitalization: GI bleed requiring multiple units of RBC transfusion HPI Dr. 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 The patient was referred to us by his primary care physician, Dr. Maurisio Kiser. The patient was in his usual state of health until roughly the past week when he started to notice hematochezia described as bright red blood per rectum. The patient was being evaluated by his PCP as an outpatient and on Saturday prior to presentation to ED, hemoglobin was roughly 10. He was being planned for further outpatient evaluation. However, he continued to have more episodes of hematochezia now associated with generalized weakness and lightheadedness and fatigue. The patient denied any associated abdominal pain, nausea, vomiting with this. He also did not have any worsening of his baseline asthma which is well controlled on home inhalers. He does have chronic back, lower extremity pain from known arthritis and has been taking Meloxicam daily up until roughly Saturday as well. He has no other bleeding or bruising. He does not have any skin changes or rashes. He did have chills without objective measured fever during this time. There is no cough. He has a headache without any other associated neurologic symptoms. This prompted the patient to be referred to the ED for further evaluation. Per patient and confirmed by PCP Dr. Kiser, the patient has had multiple colonoscopies prior, last one done 5 years prior showing extensive diverticulosis, internal hemorrhoids, as well as polyps. In the ED, the patient was afebrile and hemodynamically stable. A CBC showed a hemoglobin drop to 7.4. Gastroenterology Dr. Machado was contacted who recommended bowel prep with plan for EGD and colonoscopy on 06/04/2020 AM. In light of active bleeding, the patient was ordered for 1 unit PRBC transfusion in the ED. INR and PTT were unremarkable as well as Platelet. No evidence of hemolysis based on bilirubin. He was then admitted for further management. Consultations Gastroenterology - Carter, Surgery - Benyamini Procedures EGD/Colonoscopy 06/04/2020 SUMMARY OF FINDINGS: 1. Hiatal hernia. 2. Gastritis, status post biopsy. 3. Bleeding possibly from diverticular bleed in the left colon. 4. Internal hemorrhoids. Hospital Course This is a 69 year old gentleman with a history of well controlled HIV, hypertension, known diverticulosis, internal hemorrhoids, using daily Meloxicam for chronic arthritis, GERD, well controlled asthma who is presenting with 1 week hematochezia found to have significant drop in hemoglobin. During admission , he remained hemodynamically stable although was lethargic. He required 6 units of RBC transfusion with only minimal improvement in hemoglobin. GI, Dr. Machado was consulted and the patient was taken for EGD/colonoscopy on 2019 which did not find any active bleeding, but was suggestive of bleeding from extensive diverticulosis mainly in left/sigmoid colon. The patient, after procedure, had continued to have ongoing active hematochezia. He was then transferred to [facility] for higher level of care and possible intervention. Of note, during admission he had chills, which was of unclear etiology, but possibly due to minor blood transfusion reaction. He was started on broad spectrum antibiotics with plan for rapid de-escalation pending cultures. General surgery Dr. Shirley was also consulted for consideration of surgical intervention, although no plans were finalized by time of transfer. Other medical issues managed during admission: #Acute blood loss anemia #Gastrointestinal hemorrhage, presumed lower source #Diverticulosis #Internal hemorrhoids #Colonic polyps discovered on colonoscopy 5 years ago - differential includes diverticular bleedding, AVM, hemorrhoidal bleeding, polyp bleeding, or other lower GI source. less likely to be upper GI source as a brisk upper bleed ongoing for over 1 week would likely present in a much more critical state - patient s/p 6 unit RBC - hemoglobin this morning improved to ~8 - monitor patient closely in step down unit given continued need for blood products - trend CBC - GI consulted, appreciate recommendations. Colonoscopy done with likely diverticular bleeding although no active bleeding was able to be identified. Spoke to GI physician, will monitor in step down unit. Ongoing bleeding is believed to be residual bleeding and not active ongoing bleeding - discussed with nursing to attempt to maintain 2 large bore peripheral IV minimum at all times - no evidence of coagulopathy or hemolysis on labs - hold all NSAIDs - hold chemical DVT prophylaxis #Chills #Generalized malaise: unclear etiology. could be related to a minor transfusion reaction, but patient reports symptoms preceding blood. could also be related to blood loss as above - continue broadly with Vancomycin/Zosyn (06/03 - ) and follow up blood culture. UA and CXR unrevealing for source of infection - if cultures negative, can likely de-escalate but in light of tenuous clinical scenario will cover with antibiotics at this time - blood cultures by 06/05/2020 6:00 pm no growth to date 24 hours #Asthma: well controlled. Followed by Dr. Camron Alvarez as an outpatient - continue home Trelegy, albuterol, singulair #HIV: well controlled. has prior history of AIDS and MAC per PCP - continue home Isentress/Intelence #GERD - continue home protonix #HTN - continue home ARB #Insomnia - continue home Lunesta prn - continue home Remeron #Neuropathy - continue home gabapentin 600 mg QHS #Chronic arthritis: of back, legs, feet - hold home meloxicam in light of bleed - topical diclofenac for pain per patient preference - tylenol PRN for now and consider topicals/opioids if pain uncontrolled #Coronary artery disease: seen on Calcium CT scan, asymptomatic without angina - continue home crestor - hold aspirin in light of active bleeding #Testosterone deficiency - on home testosterone weekly injections #FEN/GI - advancing to full liquid diet, ok with GI - hold DVT ppx for active GI bleed - maintain 2+ large bore peripheral IV if possible I spent over 90 minutes minutes in the care of transfer/discharge for this patient. Over 50% was involving patient care as well as counseling/discussion of care with the patient. I also coordinated care with his primary care provider Dr. Kiser as well as Computer Training Specialist and nursing staff including Surgery Dr. Dillon. Discharge Condition Upon Discharge: stable Discharge Vital Signs Last Vital Signs Date Time Temp Pulse Resp B/P (MAP) Pulse Ox O2 Delivery O2 Flow Rate FiO2 06/05/20 17:31 98.0 80 16 128/80 (96) 98 06/05/20 16:00 Room Air 06/05/20 08:00 2.0 Discharge Disposition Patient was transferred to [facility] for a higher level of care Discharge Diagnoses: (1) Gastrointestinal hemorrhage (2) Testosterone deficiency in male (3) Internal hemorrhoid (4) HIV (human immunodeficiency virus infection) (5) Asthma (6) Hypertension (7) GERD (gastroesophageal reflux disease) (8) Osteoarthritis (9) Diverticulosis (10) CAD (coronary artery disease) (11) Hip joint replacement status Carlos Snow M.D. Jun 05, 2020 18:09
[2020-06-05] MEDS ORDERED: ZOSYN 3.373.375 GM/1 IVPB (18:16)
[2020-06-05] MEDS ORDERED: Patient's Own Med TOPIC (18:16)
[2020-06-05] MEDS ORDERED: Patient's Own Med ORAL ×3 (18:16)
[2020-06-05] MEDS ORDERED: MIRTAZAPINE15 M3 ORAL (18:16)
[2020-06-05] MEDS ORDERED: Vanco pharmacy to dose MISC (18:16)
[2020-06-05] MEDS ORDERED: [UNRECOGNIZED DRUG - OTHER] INH (18:16)
[2020-06-05] MEDS ORDERED: MONTELUKAST SOD10 MG ORAL (18:16)
[2020-06-05] MEDS ORDERED: GABAPENTIN600 MG ORAL (18:16)
--- NOTE | 2020-06-05 18:16 | Discharge Instructions ---
Discharge Instructions Discharge Instructions Follow up with: [facility] physician Call MD/Return to Hospital if: TBD Diet: full liquid Resume Normal Activity?: No For Congestive Heart Failure Reminder Report to your physician any weight gain of 5 pounds or more in one week. Carlos Snow M.D. Jun 05, 2020 18:16
[2020-06-05] MEDS ORDERED: Vancomycin 1.25gm/NS Premix IVPB SCH (18:30)
--- NOTE | 2020-06-05 18:40 | NUR ---
NURSE NOTES: Report given to ROBEL [email or web address]. #[phone](room # [id number]). Obtained the discharge orders from Dr. Carlos Snow. Will continue plan of care.
--- NOTE | 2020-06-05 19:00 | NUR ---
HAND-OFF: Report given to ROBEL Santana. Pt remains stable.
--- NOTE | 2020-06-05 19:01 | NUR ---
NURSE NOTES: received pt from Min RN., pt is awake and AO x4 at this time. pt states no pain at this time. pt is in RA 100%, and no SOB noted. left hand 22G right wrist 20 G IV site intact, clean, and patent. skin intact. bed at the lowest position, alarmed, and locked. call light within reach. will continue to monitor pt with plan of care.
--- NOTE | 2020-06-05 19:29 | NUR ---
NURSE NOTES: Received E[facility] and it will be in [facility] in 40mins
--- NOTE | 2020-06-05 20:00 | NUR ---
NURSE NOTES: pt refused to take Zozyn that is scheduled 1999, per pt " I want to take all night medicine at the [facility]". noted and will continue to monitor pt.
--- NOTE | 2020-06-05 20:15 | NUR ---
NURSE NOTES: full report given to Mary HUSTON lifeline and Autumn EMT. pt is stable condition at this time, BP 115/86 O2sat is at 100% RA, HR100, pt states no pain at this time. cardiac catheterization technologist off. belonging list signed by pt. face sheets, diacharge packet,and all the medications are given to Mary HUSTON and Autumn EMT.
--- NOTE | 2020-06-05 20:15 | NUR ---
NURSE NOTES: Endorsed pt did not take Zozyn that was scheduled on 1999 to Osorio HUSTON., and Autumn WILSON.
--- NOTE | 2020-06-05 20:30 | NUR ---
NURSE NOTES: pt left the SDU unit. pt left as stable condition.
[2020-06-06] MEDS ORDERED: [UNRECOGNIZED DRUG - OTHER] INH SCH (09:00)
--- NOTE | 2020-06-06 14:45 | NUR ---
*-* INSURANCE *-* COMPLETE RECORDS HAVE BEEN FAXED TO: [employer] REF# [id number] NCM:AZRA Ruiz; [phone] F: [phone]
== END 2020-06-05 20:30 | disposition other institution (70) | DRG 378 ==
LOC: EMR 12:09 → 3E 12:18 → EDBEDREQ 13:20 → ICU 23:57 → 2W 06-05 10:10
PROC: 30233N1 Transfusion of Nonautologous Red Blood Cells into Peripheral Vein, Percutaneous Approach (ICD-10-PCS; principal; 2020-06-03)
PROC: 0DJD8ZZ Inspection of Lower Intestinal Tract, Via Natural or Artificial Opening Endoscopic (ICD-10-PCS; 2020-06-04 08:42)
PROC: 0DB78ZX Excision of Stomach, Pylorus, Via Natural or Artificial Opening Endoscopic, Diagnostic (ICD-10-PCS; 2020-06-04 08:42)
DX: K57.31 Diverticulosis of large intestine without perforation or abscess with bleeding (principal); D62 Acute posthemorrhagic anemia; E29.1 Testicular hypofunction; K64.8 Other hemorrhoids; Z79.82 Long term (current) use of aspirin; I10 Essential (primary) hypertension; K44.9 Diaphragmatic hernia without obstruction or gangrene; Z96.643 Presence of artificial hip joint, bilateral; M19.072 Primary osteoarthritis, left ankle and foot; M19.071 Primary osteoarthritis, right ankle and foot; G62.9 Polyneuropathy, unspecified; K29.71 Gastritis, unspecified, with bleeding; I25.10 Atherosclerotic heart disease of native coronary artery without angina pectoris; Z86.010 Personal history of colon polyps; G47.00 Insomnia, unspecified
CPT/HCPCS: 36415; 71045; 80048; 80053; 80202; 81003; 83605; 83735; 85007; 85025; 85610; 85730; 86850; 86900; 86901; 86920; 87040; 93005; 94003; 94150; 96360; 96361; 99291; J7030